=== PATIENT | female | born 1950 | race Caucasian/White ===

== ENCOUNTER 2016-03-11 13:40 | Emergency (ER) | payer MEDICARE, MEDICAID ==
[2016-03-11 14:43] LABS: #Basophils 0.1 thou/uL (0.0-0.2); #Eosinphils 0.1 thou/uL (0.0-0.7); #Lymphocytes 1.3 thou/uL (1.20-3.40); #Monocytes 0.9 thou/uL (0.11-0.59); #Neutrophils 7.2 thou/uL (1.40-6.50); %Basophils 1.3 % (0.0-1.0); %Eosinophils 0.8 % (0.0-10.0); %Neutrophils 75.8 % (42.0-75.0); Hemoglobin 14.6 g/dL (12.0-16.0); Mean Corpuscular Hemoglobin 33.6 pg (27.0-31.0); Mean Corpuscular Volume 101.7 fl (81.0-99.0); Mean Platelet Volume 7.5 fL (7.4-10.4); Platelet Count 321 thou/uL (130-400); RBC Distribution Width 13.5 % (11.5-14.5); Red Blood Cell (RBC) Count 4.33 mill/uL (4.20-5.40); White Blood Cell (WBC) Count 9.6 thou/uL (4.8-10.8)
[2016-03-11 14:50] LABS: PTT 26.7 SEC (22.9-36.1); Prothrombin Time 13.1 SEC (12.0-14.7)
--- NOTE | 2016-03-11 15:00 | RAD ---
ONE VIEW CHEST: Comparison: 03-03-16 History: Possible seizure. Evaluate for aspiration. FINDINGS: Upright chest. Normal cardiac silhouette. The pulmonary vessels and hilum are normal. Costophreni c angles are clear. No masses or consolidations. No pneumothorax or osseous abnormalities. IMPRESSION: No acute cardiopulmonary process. POS: [facility]
[2016-03-11 15:01] LABS: ALT (SGPT) 30 U/L (0-55); AST (SGOT) 21 U/L (5-34); Albumin 3.3 g/dL (3.4-4.8); Alkaline Phosphatase 82 U/L (40-150); Anion Gap 18 mmol/L (10-20); BUN (Urea Nitrogen) 11 mg/dL (9.8-20.1); Bilirubin, Total 0.3 mg/dL (0.2-1.2); CK (CPK) 22 U/L (29-168); Calc. Creatinine Clearance 0 mL/min (70-130); Calcium 9.2 mg/dL (7.8-10.44); Carbon Dioxide 27 mmol/L (23-31); Chloride 104 mmol/L (98-107); Estimated GFR-MDRD 73; Globulin 3.8 g/dL (2.4-3.5); Glucose 82 mg/dL (80-115); Magnesium 2.4 mg/dL (1.6-2.6); Potassium 4.3 mmol/L (3.5-5.1); Protein, Total 7.1 g/dL (5.8-8.1); Sodium 145 mmol/L (136-145)
[2016-03-11 15:03] LABS: CKMB 1.1 ng/mL (0-6.6); Troponin I Less than 0.010 ng/mL (< 0.028)
[2016-03-11] MEDS ORDERED: Lorazepam 2 MG/ML VIAL ONE (15:04)
--- NOTE | 2016-03-11 15:04 | CT ---
CT HEAD NONCONTRAST: History: Seizure. Comparison: 08-28-13 FINDINGS: There is no evidence of acute intracranial hemorrhage or infarct. Dilatation of the ventricular sys tem has progressed since the prior study. Diffuse cortical atrophy is again demonstrated. Physiolo gic calcifications associated with basal ganglia. Septum pellucidum remains midline. Chronic opaci fication of the left mastoid air cells is apparent. IMPRESSION: Significant progression of communicating hydrocephalus. Clinical correlation regarding other signs and symptoms of normal pressure hydrocephalus is required. POS: [facility]
--- NOTE | 2016-03-11 17:28 | ERRECORD ---
[facility] EMERGENCY RECORD HPI SEIZURE (17:05 LLDO) CHIEF COMPLAINT: Patient presents for evaluation of seizure, Patient presents for evaluation of see triage note. pt has downs syndrome and dementia but has not had seizures before. sent in from [place] by ems for what appeared to be a single tonic seizure followed by a post ictal period. no aspiration or any other s-sx. HISTORIAN: Additional history obtained from custodial, Additional history obtained from EMS, pt is mostly non-verbal normally now, even less than her usual state. deep pain only on arrival. LOCATION: Symptoms are generalized. QUALITY: Seizure quality described as tonic-clonic, single episode. SEVERITY: Maximum severity of symptoms moderate, Currently symptoms are moderate. TIME COURSE: Sudden onset of symptoms, just prior to arrival, Symptoms are worsening, are constant. ASSOCIATED WITH: No associated alcohol use, No associated drug use, No associated fever, No associated trauma. EXACERBATED BY: Patient's condition exacerbated by nothing. RELIEVED BY: Patient's condition relieved by nothing. ROS CONSTITUTIONAL: see hpi. pt not responding and no family here. ros not really possible. (17:10 LLDO) EYES: Negative eye review of systems, Historian denies eye pain, denies eye redness, denies eye discharge. (17:16 LLDO) ENT: Negative ears, nose, throat review of systems, Historian denies epistaxis, denies rhinorrhea, denies sinus pain, denies sore throat. (17:16 LLDO) CARDIOVASCULAR: Negative cardiovascular review of systems, Historian denies chest pain, no radiation, Historian denies diaphoresis, denies syncope. (17:16 LLDO) RESPIRATORY: Negative respiratory review of systems, Historian denies cough, denies shortness of breath, denies sputum. (17:16 LLDO) GI: Negative gastrointestinal review of systems, Historian denies abdominal pain, denies constipation, denies diarrhea, denies nausea, denies vomiting. (17:16 LLDO) GENITOURINARY FEMALE: Negative genitourinary review of systems, Historian denies dysuria, denies frequency, denies urgency. (17:16 LLDO) MUSCULOSKELETAL: Negative musculoskeletal review of systems, Historian denies arthralgias, denies back pain, denies injury, denies myalgias, denies neck pain. (17:16 LLDO) SKIN: Negative skin review of systems, Historian denies cellulitis, denies rash, denies skin changes, denies skin lesions. (17:16 LLDO) NEUROLOGIC: Historian reports seizures. (17:10 LLDO) HEMO/LYMPHATIC: Normal hematologic/lymphatic system review, Historian denies abnormal blood clotting, denies gum bleeding, denies &a-1R&a+25V*p+0X*m8744V*c202B*c15G*c2P*p-0X&a-25V&a+1R Name: Carline Huretas : 1950 F65 MedRec: [id number] AcctNum: [id number] Prepared: Yas Mar 11, 2016 17:23 by Interface Page 1 of 4 pMD [facility] EMERGENCY RECORD petechiae. (17:16 LLDO) ALLERGIC/IMMUNOLOGIC: Normal allergy/immunologic system review, Historian denies eczema, denies environmental allergies, denies food allergies. (17:16 LLDO) PSYCHIATRIC: Negative psychiatric review of systems, Historian denies alcohol abuse, denies anxiety, denies depression, denies drug abuse, denies hallucinations. (17:16 LLDO) NOTES: All systems reviewed, negative except as described above. (17:10 LLDO) PAST MEDICAL HISTORY MEDICAL HISTORY: Notes: VERIFIED 02-29-16, Past medical history includes history of hyperlipidemia, Notes: Dementia, Down's Syndrome, hypothyroidism, Asthma; Dysphagia; Failed swallow study. HYPOPOTASSEMIA, LEUKOCYTOSIS, CANDIDIASIS OF THE MOUTH, PSEUDOBULBAR AFFECT, GERD, OSTEOPOROSIS. VERIFIED 04/14/15. (13:47 CJEF) FEMALE SURGICAL HISTORY: VERIFIED 02-29-16, NOT AVAILABLE ON [place] [facility]. (13:47 CJEF) PSYCHIATRIC HISTORY: Notes: VERIFIED 02-28-, Notes: Dementia, BIPOLAR, ANXIETY, DEPRESSION. (13:47 CJEF) SOCIAL HISTORY: Patient denies alcohol use, Patient denies drug use, Patient has no smoking history, Patient denies alcohol use, Patient denies drug use, Patient has no smoking history, Lives in [facility], Name of institution [facility],. (13:47 CJEF) FAMILY HISTORY: No known family hisotry. (13:47 CJEF) NOTES: Nursing records reviewed, Agree with nursing records, Medication list reviewed. (17:16 LLDO) KNOWN ALLERGIES Sulfa (Sulfonamide Antibiotics) tomato (Unconfirmed) CURRENT MEDICATIONS (13:48 CJEF) levothyroxine: TABLET : Strength - 25 mcg : ORAL Patient Dose: 88 mcg Oral once a day (in the morning). Depakote: TABLET, DELAYED RELEASE (ENTERIC COATED) : Strength - 125 mg : ORAL Patient Dose: 1 tab(s) Oral 3 times a day. Aricept: TABLET : Strength - 10 mg : ORAL Patient Dose: 10 mg Oral once a day (at bedtime). aspirin: TABLET, CHEWABLE : Strength - 81 mg : ORAL Patient Dose: mg Oral once a day. Ativan: TABLET : Strength - 1 mg : ORAL Patient Dose: 0.5 mg Oral once a day (at bedtime). Claritin: &a-1R&a+25V*p+0X*a0429J*c202B*c15G*c2P*p-0X&a-25V&a+1R Name: HuertasCarline : 1950 F65 MedRec: [id number] AcctNum: [id number] Prepared: [facility] Mar 11, 2016 17:23 by Interface Page 2 of 4 pMD [facility] EMERGENCY RECORD TABLET : Strength - 10 mg : ORAL Patient Dose: once a day (in the morning). Namenda: TABLET : Strength - 10 mg : ORAL Patient Dose: 10 mg Oral 2 times a day (before meals). Zantac: TABLET : Strength - 150 mg : ORAL Patient Dose: 2 times a day (before meals). Zocor: TABLET : Strength - 20 mg : ORAL Patient Dose: 10 mg Oral once a day (at bedtime). VITAL SIGNS VITAL SIGNS: BP: 144/80, Pulse: 80, Resp: 18, Temp: 98.3 (Tympanic), Pain: 0, O2 sat: 94 on Room Air, Time: 03/11/2016 13:41. (13:41 CJEF) BP: 117/69, Pulse: 79, Resp: 18, Pain: 0, O2 sat: 95 on Room Air, Time: 03/11/2016 14:32. (14:32 CJEF) BP: 141/74, Pulse: 75, Resp: 16, O2 sat: 95 on Room Air, Time: 03/11/2016 15:03. (15:03 CJEF) BP: 93/61, Pulse: 83, Resp: 18, Pain: 0, O2 sat: 96 on Room Air, Time: 03/11/2016 15:37. (15:37 CJEF) BP: 84/59, Pulse: 80, Resp: 18, Temp: 98.6 (Tympanic), Pain: 0, O2 sat: 94 on Room Air, Time: 03/11/2016 16:05. (16:05 CJEF) BP: 102/59, Pulse: 76, Resp: 16, O2 sat: 95 on Room Air, Time: 03/11/2016 16:31. (16:31 CJEF) BP: 93/53, Pulse: 75, Resp: 14, Pain: 0, O2 sat: 95 on Room Air, Time: 03/11/2016 17:00. (17:00 CJEF) PHYSICAL EXAM CONSTITUTIONAL: Vital signs reviewed, Patient afebrile, Pulse normal, Blood pressure, BP SLIGHTLY LOW, Respiratory rate normal, Patient alert and oriented to person, place and time. (17:11 LLDO) HEAD: Head exam included findings of head atraumatic, normocephalic. (17:12 LLDO) EYES: Eye exam included findings of eyelids normal to inspection, Pupils equally round and reactive to light, Conjunctiva normal, Sclera normal, Eye exam included findings of anterior chamber clear, pt not able to cooperate for good fundi. (17:12 LLDO) ENT: ENT exam normal. (17:12 LLDO) NECK: Neck exam included findings of normal range of motion, Trachea midline, Thyroid normal. (17:12 LLDO) RESPIRATORY CHEST: Respiratory exam included findings of no respiratory distress, Breath sounds clear, Chest exam included findings of chest movement symmetrical, Chest expansion equal. (17:12 LLDO) CARDIOVASCULAR: Cardiovascular exam included findings of heart rate regular rate and rhythm, Heart sounds normal. (17:12 LLDO) ABDOMEN FEMALE: Abdominal exam included findings of abdomen &a-1R&a+25V*p+0X*w0393J*c202B*c15G*c2P*p-0X&a-25V&a+1R Name: HuertasCarline : 1950 F65 MedRec: [id number] AcctNum: [id number] Prepared: [facility] Mar 11, 2016 17:23 by Interface Page 3 of 4 pMD [facility] EMERGENCY RECORD nontender, Bowel sounds normal. (17:12 LLDO) BACK: Back exam normal, Back exam included findings of normal inspection, range of motion normal. (17:16 LLDO) UPPER EXTREMITY: left arm drawn up and not seen to move. (17:12 LLDO) LOWER EXTREMITY: Lower extremity exam normal, Lower extremity exam included findings of inspection normal, Range of motion normal. (17:16 LLDO) NEURO: Neuro exam normal, Neuro exam findings include patient oriented to person, place and time, Speech normal, Demetria coma scale 15. (17:16 LLDO) SKIN: Skin exam normal, Skin exam included findings of skin warm, dry, and normal in color, no rash. (17:16 LLDO) PSYCHIATRIC: Psychiatric exam normal, Psychiatric exam included findings of patient oriented to person place and time, Normal affect. (17:16 LLDO) MEDICATION ADMINISTRATION SUMMARY Drug Name: Ativan injection, Dose Ordered: 1 mg, Route: IV Push, Status: Given, Time: 15:07 03/11/2016, Detailed record available in Medication Service section. DOCTOR NOTES TEXT: pt appeared to have a witnessed very brief tonic-clonic seizure and is now very poorly responsive (possible [id number]). (15:01 LLDO) talked to sister who agreed to the transfer and neurosurgical evaluation. (17:02 LLDO) PROBLEM LIST No recorded problems DIAGNOSIS (17:04 LLDO) FINAL: PRIMARY: OBSTRUCTIVE HYDROCEPHALUS, ADDITIONAL: seizures, new onset, trisomy 21. PRESCRIPTION No recorded prescriptions DISPOSITION PATIENT: Disposition Type: Transfer, Disposition: Transfer to [facility]. (17:04 LLDO) Patient left the department. (17:18 [facility]) Ramos: NANCY=KASSI Adam, Linnette LLDO=MD Hayes, Jas &a-1R&a+25V*p+0X*[id number]*c202B*c15G*c2P*p-0X&a-25V&a+1R Name: Carline Huertas : 1950 F65 MedRec: [id number] AcctNum: [id number] Prepared: Yas Mar 11, 2016 17:23 by Interface Page 4 of 4 pMD MTDD
--- NOTE | 2016-03-11 17:31 | PICIS ---
[facility] EMERGENCY RECORD TRIAGE (TueMar 11, 2016 13:44 CJEF) TRIAGE NOTES: PT FROM [facility] AND SENT FOR A POSSIBLE SEIZURE AND AMS. SEIZURE WAS UNWITNESSED, THOUGH [place] STAFF ALSO STATED THAT PT DOES NOT HAVE A HX OF SEIZURES. PT ALERT, THOUGH NOT RESPONDING. (TueMar 11, 2016 13:44 CJEF) PATIENT: NAME: Carline Huertas, AGE: 65, GENDER: female, : Tue1950, TIME OF GREET: TueMar 11, 2016 13:41, PREFERRED LANGUAGE: [place] Islander, ETHNICITY: Not or , FALL RISK: YES, ADVANCED DIRECTIVE: Yes, ECODE BILLING MAP: [facility], SSN: [id number], Zip Code: [address], KG WEIGHT: 72.57, PHONE: , , , PERSON ID: [id number], PCP: MD JIMENEZ IMELDA. (TueMar 11, 2016 13:44 CJEF) COMPLAINT: AMS. (TueMar 11, 2016 13:44 CJEF) ADMISSION: URGENCY: 3 Urgent, ADMISSION SOURCE: Home, TRANSPORT: Walk-in, BED: TRIAGE. (TueMar 11, 2016 13:44 CJEF) ASSESSMENT: Assessment: AMS. (13:47 CJEF) PAIN: No complaint of pain. (13:47 CJEF) IMMUNIZATIONS: Flu vaccine up to date, Tetanus immunization up to date, Pneumococcal vaccine up to date. (13:47 CJEF) SIRS SCORING: Heart Rate 55-109 (0), Temp range 96.8-101.1 (0), respiratory rate 12-24 (0), Mental Status altered: no (0), Infection or Suspected Infection: No. (13:47 CJEF) TRIAGE SCREENING: Patient denies suicidal ideation, Patient denies presence of domestic violence. (13:47 CJEF) PROVIDERS: TRIAGE NURSE: Linnette Adam RN. (TueMar 11, 2016 13:44 CJEF) VITAL SIGNS: BP 144/80, Pulse 80, Resp 18, Temp 98.3, (Tympanic), Pain 0, O2 Sat 94, on Room Air, Time 03/11/2016 13:41. (13:41 CJEF) PREVIOUS VISIT ALLERGIES: Sulfa (Sulfonamide Antibiotics). (TueMar 11, 2016 13:44 CJEF) Sulfa (Sulfonamide Antibiotics). (13:47 CJEF) KNOWN ALLERGIES Sulfa (Sulfonamide Antibiotics) tomato (Unconfirmed) CURRENT MEDICATIONS (13:48 CJEF) levothyroxine: TABLET : Strength - 25 mcg : ORAL Patient Dose: 88 mcg Oral once a day (in the morning). Depakote: TABLET, DELAYED RELEASE (ENTERIC COATED) : Strength - 125 mg : ORAL Patient Dose: 1 tab(s) Oral 3 times a day. Aricept: TABLET : Strength - 10 mg : ORAL Patient Dose: 10 mg Oral once a day (at bedtime). aspirin: TABLET, CHEWABLE : Strength - 81 mg : ORAL Patient Dose: mg Oral once a day. &a-1R&a+25V*p+0X*l6650J*c202B*c15G*c2P*p-0X&a-25V&a+1R Name: Carline Huertas Hannah : 1950 F65 MedRec: [id number] AcctNum: [id number] Prepared: TueMar 11, 2016 17:29 by Interface Page 1 of 14 pMD [facility] EMERGENCY RECORD Ativan: TABLET : Strength - 1 mg : ORAL Patient Dose: 0.5 mg Oral once a day (at bedtime). Claritin: TABLET : Strength - 10 mg : ORAL Patient Dose: once a day (in the morning). Namenda: TABLET : Strength - 10 mg : ORAL Patient Dose: 10 mg Oral 2 times a day (before meals). Zantac: TABLET : Strength - 150 mg : ORAL Patient Dose: 2 times a day (before meals). Zocor: TABLET : Strength - 20 mg : ORAL Patient Dose: 10 mg Oral once a day (at bedtime). VITAL SIGNS VITAL SIGNS: BP: 144/80, Pulse: 80, Resp: 18, Temp: 98.3 (Tympanic), Pain: 0, O2 sat: 94 on Room Air, Time: 03/11/2016 13:41. (13:41 CJEF) BP: 117/69, Pulse: 79, Resp: 18, Pain: 0, O2 sat: 95 on Room Air, Time: 03/11/2016 14:32. (14:32 CJEF) BP: 141/74, Pulse: 75, Resp: 16, O2 sat: 95 on Room Air, Time: 03/11/2016 15:03. (15:03 CJEF) BP: 93/61, Pulse: 83, Resp: 18, Pain: 0, O2 sat: 96 on Room Air, Time: 03/11/2016 15:37. (15:37 CJEF) BP: 84/59, Pulse: 80, Resp: 18, Temp: 98.6 (Tympanic), Pain: 0, O2 sat: 94 on Room Air, Time: 03/11/2016 16:05. (16:05 CJEF) BP: 102/59, Pulse: 76, Resp: 16, O2 sat: 95 on Room Air, Time: 03/11/2016 16:31. (16:31 CJEF) BP: 93/53, Pulse: 75, Resp: 14, Pain: 0, O2 sat: 95 on Room Air, Time: 03/11/2016 17:00. (17:00 CJEF) NURSING ASSESSMENT: FALL RISK (14:36 CJ) FALL RISK: Fall risk assessment findings include: History of falls (5), Bed rest greater than 2 days (5), No use of level of consciousness altering agents with mentation or cognitive changes (0), No change in blood pressure (0), Sensory deficits (1), Impaired mobility (3), Neurologic diagnosis (3), Elimination problems (3), Confusion (3), Total score 23, Fall risk. HENDRICH II FALL RISK: Hendrich II Fall Risk assessment findings include patient confused, disoriented or impulsive(4), not symptomatic or depressed, altered elimination(1), no dizziness or vertigo, female, no antiepileptics (anticonvulsants) administered, no Benzodiazepines administered, Unable to rise without assistance during test(4), Total score 9, Score greater than 5. Patient is at high risk for fall. Fall risk precautions initiated. &a-1R&a+25V*p+0X*j9388Y*c202B*c15G*c2P*p-0X&a-25V&a+1R Name: Carline Huertas : 1950 F65 MedRec: [id number] AcctNum: [id number] Prepared: Yas Mar 11, 2016 17:29 by Interface Page 2 of 14 pMD [facility] EMERGENCY RECORD NURSING ASSESSMENT: FOCUSED (13:48 [facility]) CONSTITUTIONAL: Complex assessment performed, Patient arrives, via [facility], Unsteady gait, Lift to cart, History obtained from, [facility], shelter record, Patient appears, generally ill, Patient, confused, Patient alert, Patient is, disoriented, confused, Skin warm, Skin dry, Skin normal in color, Mucous membranes pink, Mucous membranes moist, Patient is well-groomed, PT FROM [facility] AND SENT FOR A POSSIBLE SEIZURE AND AMS. SEIZURE WAS UNWITNESSED, THOUGH [place] STAFF ALSO STATED THAT PT DOES NOT HAVE A HX OF SEIZURES. PT ALERT, THOUGH NOT RESPONDING. PAIN: Pain level 0 No Hurt, using faces pain scoring. EYES: Focused eye assessment finding include pupils equally round and reactive to light, no redness, no tearing. NEURO: Focused neuro assessment findings include patient alert, No facial droop noted, Silent, Loss of consciousness for unknown length of time. GCS: Eye opening: (4) - Spontaneous, Verbal: (1) - Absent, Motor: (5) - Localizes Pain, GCS Total: 10. RESPIRATORY: Focused respiratory assessment findings include breath sounds clear. ABDOMEN: Focused abdominal assessment findings include abdomen soft, non tender. GENITOURINARY FEMALE: Focused genitourinary assessment not applicable. LACERATION: Focused laceration assessment not applicable. NOTES: Patient tolerated procedure well. SAFETY: Side rails up, Cart/Stretcher in lowest position, Family at bedside, Call light within reach, Hospital ID band on. NURSING ASSESSMENT: SKIN (15:03 [facility]) SKIN: Skin assessment findings include skin warm, Skin dry, Skin normal in color, Notes: BLANCHABLE REDNESS TO SACRUM. NERISSA SCALE: (2) Sensory perception very limited, (3) Skin is occasionally moist, (1) Patient is bedfast, (2) Very limited mobility, (3) Adequate nutrition, (1) Patient has problem moving, Nerissa Risk Total: 12. NOTES: Patient tolerated procedure well. SAFETY: Side rails up, Cart/Stretcher in lowest position, Family at bedside, Call light within reach, Hospital ID band on. NURSING PROCEDURE: BEDSIDE SIRS TESTING SCORES: Heart Rate 55-109 (0), Temp range 96.8-101.1 (0), respiratory rate 12-24 (0), Latest WBC 3-14.9 (0), Mental Status altered: no (0), Infection or Suspected Infection: No. (15:09 CJEF) Heart Rate 55-109 (0), Temp range 96.8-101.1 (0), respiratory rate 12-24 (0), Latest WBC 3-14.9 (0), Mental Status altered: no (0), Infection &a-1R&a+25V*p+0X*w0425Q*c202B*c15G*c2P*p-0X&a-25V&a+1R Name: Carline Huertas : 1950 F65 MedRec: [id number] AcctNum: [id number] Prepared: [facility] Mar 11, 2016 17:29 by Interface Page 3 of 14 pMD [facility] EMERGENCY RECORD or Suspected Infection: No. (16:21 [facility]) NURSING PROCEDURE: WEIGH AND CHARGE WORKER (13:52 [facility]) PATIENT IDENTIFIER: Patient actively involved in identification process, Patient's identity verified by patient stating name, Patient's identity verified by patient stating date. WEIGH AND CHARGE WORKER: Cardiac monitoring indicated for mental status changes, Patient placed on log snaker, Heart rate: 79, showing normal sinus rhythm, Patient placed on non-invasive blood pressure monitor, with disposable blood pressure cuff applied, Patient placed on continuous pulse oximetry, Adult/pediatric oxisensor applied. FOLLOW-UP: After procedure, alarms set and on, After procedure, patient tolerating monitoring. NOTES: Patient tolerated procedure well. SAFETY: Side rails up, Cart/Stretcher in lowest position, Family at bedside, Call light within reach, Hospital ID band on. NURSING PROCEDURE: EKG CHART (14:25 CJEF) PATIENT IDENTIFIER: Patient actively involved in identification process, Patient's identity verified by patient stating name, Patient's identity verified by patient stating date. EK lead EKG performed on the left chest, first EKG. FOLLOW-UP: After procedure, EKG for interpretation given to Dr. KOO. NOTES: Patient tolerated procedure well. SAFETY: Side rails up, Cart/Stretcher in lowest position, Family at bedside, Call light within reach, Hospital ID band on. NURSING PROCEDURE: IV (14:31 CJEF) PATIENT IDENITIFIER: Patient actively involved in identification process, Patient's identity verified by patient stating name, Patient's identity verified by patient stating date. IV SITE 1: IV therapy indicated for hydration, IV therapy indicated for medication administration, IV established, to the left hand, using a 20 gauge catheter, in one attempt, IV site prepped with CHLORAPREP, Saline lock established, Flushed with normal saline (mls): 10, Labs drawn at time of placement, labeled in the presence of the patient and sent to lab. FOLLOW-UP SITE 1: After procedure, sterile transparent dressing applied. NOTES: Patient tolerated procedure well. SAFETY: Side rails up, Cart/Stretcher in lowest position, Family at bedside, Call light within reach, Hospital ID band on. NURSING PROCEDURE: NURSE NOTES NURSES NOTES: Patient in no apparent distress, Patient resting quietly, Notes: PT WAS FOUND TO BE HAVING A SEIZURE UPON ENTERING PT ROOM. SEIZURE LASTED APPROX 30 SECONDS AND WAS A TONIC CLONIC. PT NOW IN POSTICTAL STATE. SEIZURE PADS IN PLACE. (15:00 &a-1R&a+25V*p+0X*f8419N*c202B*c15G*c2P*p-0X&a-25V&a+1R Name: Carline Huertas : 1950 F65 MedRec: [id number] AcctNum: [id number] Prepared: [facility] Mar 11, 2016 17:29 by Interface Page 4 of 14 pMD [facility] EMERGENCY RECORD CJEF) Patient in no apparent distress, Patient resting quietly, Notes: PT RESTING IN BED WITH EYES SHUT. NO DISTRESS NOTED. (15:37 CJEF) Patient in no apparent distress, Patient resting quietly, Notes: PT RESTING IN BED WITH EYES SHUT. NO DISTRESS NOTED. (16:04 CJEF) Patient in no apparent distress, Patient resting quietly, Notes: PT RESTING IN BED WITH EYES SHUT. NO DISTRESS NOTED. (16:31 CJEF) Patient in no apparent distress, Notes: PT WITH INTERMITTENT AND INFREQUENT OPENING OF EYES, THOUGH PT IS NON VERBAL AND DOES RESPOND TO PAIN BY ATTEMPTING TO PULL AWAY. (16:40 CJEF) Patient in no apparent distress, Notes: PT WITH SMALL BOWL MOVEMENT. PT CLEANED AND NEW BRIEF PLACED. (17:09 CJEF) Patient in no apparent distress, Patient resting quietly, Notes: EMS AT BEDSIDE FOR REPORT. (17:18 CJEF) NURSING PROCEDURE: TRANSFER (16:52 CJEF) TRANSFER: Reason for transfer need for specialized care, Diagnosis: HYDROCEPHALUS, SEIZURES, Accepting institution: [facility] physician: JUAN MANUEL, Transported by urgent ambulance, accompanied by emergency medical services personnel, Report called to receiving facility, [facility], Provided opportunity to answer questions, Summary of Care printed, Copy of patient record prepared for receiving facility, Copy of diagnostic studies, Status of patient's valuables documented on chart, Medication reconciliation form prepared and sent to receiving facility, Patient consent for transfer signed, Patient given appropriate sedation for safe transport, Family member contacted, MARILYN RODRIGUEZ. BELONGINGS: Belongings remain with patient. NOTES: Patient tolerated procedure well. SAFETY: Side rails up, Cart/Stretcher in lowest position, Family at bedside, Call light within reach, Hospital ID band on. NURSING PROCEDURE: TRANSPORT TO TESTS PATIENT IDENTIFIER: Patient actively involved in identification process, Patient's identity verified by patient stating name, Patient's identity verified by patient stating date. (14:37 CJEF) TRANSPORT TO TESTS: Transport indicated to facilitate diagnosis, Patient transported to x-ray, via cart, Accompanied by x-ray hvac technician, Notes: PT TRANSPORTED TO X-RAY AND CT. (14:37 CJEF) FOLLOW-UP: After procedure, patient returned to emergency department. (14:58 CJEF) NOTES: Patient tolerated procedure well. (14:37 CJEF) SAFETY: Side rails up, Cart/Stretcher in lowest position, Family at bedside, Call light within reach, Hospital ID band on. (14:37 CJEF) ORDER DETAILS &a-1R&a+25V*p+0X*e5030R*c202B*c15G*c2P*p-0X&a-25V&a+1R Name: Carline Huertas : 1950 F65 MedRec: [id number] AcctNum: [id number] Prepared: [facility] Mar 11, 2016 17:29 by Interface Page 5 of 14 pMD [facility] EMERGENCY RECORD Order Name: B type Natriuretic Peptide, Status: Active, Time: 14:14 03/11/2016, User: LLDO, - Ordered for: MD Koo Lloyd, - Entered by: MD Koo Lloyd - Yas Mar 11, 2016 14:14, - Quantity: 1, Order Name: Cardiac Profile w/CKMB & Troponin - I, Status: Active, Time: 14:14 03/11/2016, User: LLDO, - Ordered for: MD Koo Lloyd, - Entered by: MD Koo Lloyd - Ysa Mar 11, 2016 14:14, - Quantity: 1, Order Name: CBC with Differential, Status: Active, Time: 14:13 03/11/2016, User: LLDO, - Ordered for: MD Koo Lloyd, - Entered by: MD Koo Lloyd - Yas Mar 11, 2016 14:13, - Quantity: 1, Order Name: CK (CPK), Status: Active, Time: 14:14 03/11/2016, User: LLDO, - Ordered for: MD Koo Lloyd, - Entered by: MD Koo Lloyd - Yas Mar 11, 2016 14:14, - Quantity: 1, Order Name: Comprehensive Metabolic Panel, Status: Active, Time: 14:13 03/11/2016, User: LLDO, - Ordered for: MD Koo Lloyd, - Entered by: MD Koo Lloyd - Yas Mar 11, 2016 14:13, - Quantity: 1, Order Name: CT Brain WO Con, Status: Active, Time: 14:13 03/11/2016, User: LLDO, - Ordered for: MD Koo Lloyd, - Entered by: MD Koo Lloyd - Yas Mar 11, 2016 14:13, - Quantity: 1, Order Name: EKG 12 Lead in Emergency Room, Status: Active, Time: 14:14 03/11/2016, User: LLDO, - Ordered for: MD Koo Lloyd, - Entered by: MD Koo Lloyd - Yas Mar 11, 2016 14:14, - Quantity: 1, Order Name: ERRT Oxygen Usage ER, Status: Active, Time: 14:14 03/11/2016, User: LLDO, - Ordered for: MD Koo Lloyd, - Entered by: MD Koo Lloyd - Yas Mar 11, 2016 14:14, - Quantity: 1, Order Name: ERRT Pulse Oximeter ER, Status: Active, Time: 14:14 03/11/2016, User: LLDO, - Ordered for: MD Koo Lloyd, - Entered by: MD Koo Lloyd - [facility] Mar 11, 2016 14:14, - Quantity: 1, Order Name: Magnesium, Status: Active, Time: 14:14 03/11/2016, User: LLDO, - Ordered for: MD Koo Lloyd, - Entered by: MD Koo Lloyd - [facility] Mar 11, 2016 14:14, - Quantity: 1, &a-1R&a+25V*p+0X*n4050J*c202B*c15G*c2P*p-0X&a-25V&a+1R Name: Carline Huertas : 1950 F65 MedRec: [id number] AcctNum: [id number] Prepared: TueMar 11, 2016 17:29 by Interface Page 6 of 14 D [facility] EMERGENCY RECORD Order Name: Protime with INR, Status: Active, Time: 14:14 03/11/2016, User: LLDO, - Ordered for: MD Koo Lloyd, - Entered by: MD Koo Lloyd - Yas Mar 11, 2016 14:14, - Quantity: 1, Order Name: PTT, Status: Active, Time: 14:14 03/11/2016, User: LLDO, - Ordered for: MD Koo Lloyd, - Entered by: MD Koo Lloyd - Yas Mar 11, 2016 14:14, - Quantity: 1, Order Name: SALINE LOCK, Status: Done, Time: 14:35 03/11/2016, User: CJEF, - Ordered for: MD Koo Lloyd, - Entered by: MD Koo Lloyd - Yas Mar 11, 2016 14:14, - Quantity: 1, Order Name: Thyroid Stimulating Hormone, Status: Active, Time: 14:13 03/11/2016, User: KATLYN, - Ordered for: MD Koo Lloyd, - Entered by: MD Koo Lloyd - [facility] Mar 11, 2016 14:13, - Quantity: 1, Order Name: XR Chest 1 View Portable, Status: Active, Time: 14:14 03/11/2016, User: KATLYN, - Ordered for: MD Koo Lloyd, - Entered by: MD Koo Lloyd - [facility] Mar 11, 2016 14:14, - Quantity: 1. MEDICATION ADMINISTRATION SUMMARY Drug Name: Ativan injection, Dose Ordered: 1 mg, Route: IV Push, Status: Given, Time: 15:07 03/11/2016, Detailed record available in Medication Service section. MEDICATION SERVICE (15:07 [facility]) Ativan injection: Order: Ativan injection (lorazepam) - Dose: 1 mg : IV Push Schedule: Now Ordered by: Jas Koo MD Entered by: Jas Koo MD [facility] Mar 11, 2016 14:59 Documented as given by: Linnette Adam RN [facility] Mar 11, 2016 15:07 Patient, Medication, Dose, Route and Time verified prior to administration. Amount given: 1 MG, IV SITE #1 IVP, initial medication, Slowly, Awake and alert- acceptable, Connections checked prior to administration, Line traced prior to administration, Catheter placement confirmed via flush prior to administration, IV site without signs or symptoms of infiltration during medication administration, No swelling during administration, No drainage during administration, IV flushed after administration, Correct patient, time, route, dose and medication confirmed prior to administration, Patient advised of actions and side-effects prior to administration, Allergies confirmed and medications reviewed prior to administration, &a-1R&a+25V*p+0X*j4166I*c202B*c15G*c2P*p-0X&a-25V&a+1R Name: Carline Huertas : 1950 F65 MedRec: [id number] AcctNum: [id number] Prepared: TueMar 11, 2016 17:29 by Interface Page 7 of 14 pMD [facility] EMERGENCY RECORD Patient tolerated procedure well, Patient in position of comfort, Side rails up, Cart in lowest position, Family at bedside. HPI SEIZURE (17:05 LLDO) CHIEF COMPLAINT: Patient presents for evaluation of seizure, Patient presents for evaluation of see triage note. pt has downs syndrome and dementia but has not had seizures before. sent in from [place] by ems for what appeared to be a single tonic seizure followed by a post ictal period. no aspiration or any other s-sx. HISTORIAN: Additional history obtained from shelter, Additional history obtained from EMS, pt is mostly non-verbal normally now, even less than her usual state. deep pain only on arrival. LOCATION: Symptoms are generalized. QUALITY: Seizure quality described as tonic-clonic, single episode. SEVERITY: Maximum severity of symptoms moderate, Currently symptoms are moderate. TIME COURSE: Sudden onset of symptoms, just prior to arrival, Symptoms are worsening, are constant. ASSOCIATED WITH: No associated alcohol use, No associated drug use, No associated fever, No associated trauma. EXACERBATED BY: Patient's condition exacerbated by nothing. RELIEVED BY: Patient's condition relieved by nothing. ROS CONSTITUTIONAL: see hpi. pt not responding and no family here. ros not really possible. (17:10 LLDO) EYES: Negative eye review of systems, Historian denies eye pain, denies eye redness, denies eye discharge. (17:16 LLDO) ENT: Negative ears, nose, throat review of systems, Historian denies epistaxis, denies rhinorrhea, denies sinus pain, denies sore throat. (17:16 LLDO) CARDIOVASCULAR: Negative cardiovascular review of systems, Historian denies chest pain, no radiation, Historian denies diaphoresis, denies syncope. (17:16 LLDO) RESPIRATORY: Negative respiratory review of systems, Historian denies cough, denies shortness of breath, denies sputum. (17:16 LLDO) GI: Negative gastrointestinal review of systems, Historian denies abdominal pain, denies constipation, denies diarrhea, denies nausea, denies vomiting. (17:16 LLDO) GENITOURINARY FEMALE: Negative genitourinary review of systems, Historian denies dysuria, denies frequency, denies urgency. (17:16 LLDO) MUSCULOSKELETAL: Negative musculoskeletal review of systems, Historian denies arthralgias, denies back pain, denies injury, denies myalgias, denies neck pain. (17:16 LLDO) SKIN: Negative skin review of systems, Historian denies cellulitis, denies rash, denies skin changes, denies skin lesions. (17:16 LLDO) &a-1R&a+25V*p+0X*p8448Q*c202B*c15G*c2P*p-0X&a-25V&a+1R Name: Carline Huertas : 1950 F65 MedRec: [id number] AcctNum: [id number] Prepared: Yas Mar 11, 2016 17:29 by Interface Page 8 of 14 pMD [facility] EMERGENCY RECORD NEUROLOGIC: Historian reports seizures. (17:10 LLDO) HEMO/LYMPHATIC: Normal hematologic/lymphatic system review, Historian denies abnormal blood clotting, denies gum bleeding, denies petechiae. (17:16 LLDO) ALLERGIC/IMMUNOLOGIC: Normal allergy/immunologic system review, Historian denies eczema, denies environmental allergies, denies food allergies. (17:16 LLDO) PSYCHIATRIC: Negative psychiatric review of systems, Historian denies alcohol abuse, denies anxiety, denies depression, denies drug abuse, denies hallucinations. (17:16 LLDO) NOTES: All systems reviewed, negative except as described above. (17:10 LLDO) PAST MEDICAL HISTORY MEDICAL HISTORY: Notes: VERIFIED 02-29-16, Past medical history includes history of hyperlipidemia, Notes: Dementia, Down's Syndrome, hypothyroidism, Asthma; Dysphagia; Failed swallow study. HYPOPOTASSEMIA, LEUKOCYTOSIS, CANDIDIASIS OF THE MOUTH, PSEUDOBULBAR AFFECT, GERD, OSTEOPOROSIS. VERIFIED 04/14/15. (13:47 CJEF) FEMALE SURGICAL HISTORY: VERIFIED 02-29-16, NOT AVAILABLE ON [place] [facility]. (13:47 CJEF) PSYCHIATRIC HISTORY: Notes: VERIFIED 02-29-16, Notes: Dementia, BIPOLAR, ANXIETY, DEPRESSION. (13:47 CJEF) SOCIAL HISTORY: Patient denies alcohol use, Patient denies drug use, Patient has no smoking history, Patient denies alcohol use, Patient denies drug use, Patient has no smoking history, Lives in half-way care facility, Name of institution [facility],. (13:47 CJEF) FAMILY HISTORY: No known family hisotry. (13:47 CJEF) NOTES: Nursing records reviewed, Agree with nursing records, Medication list reviewed. (17:16 LLDO) PHYSICAL EXAM CONSTITUTIONAL: Vital signs reviewed, Patient afebrile, Pulse normal, Blood pressure, BP SLIGHTLY LOW, Respiratory rate normal, Patient alert and oriented to person, place and time. (17:11 LLDO) HEAD: Head exam included findings of head atraumatic, normocephalic. (17:12 LLDO) EYES: Eye exam included findings of eyelids normal to inspection, Pupils equally round and reactive to light, Conjunctiva normal, Sclera normal, Eye exam included findings of anterior chamber clear, pt not able to cooperate for good fundi. (17:12 LLDO) ENT: ENT exam normal. (17:12 LLDO) NECK: Neck exam included findings of normal range of motion, Trachea midline, Thyroid normal. (17:12 LLDO) RESPIRATORY CHEST: Respiratory exam included findings of no respiratory distress, Breath sounds clear, Chest exam included findings of chest movement symmetrical, Chest expansion equal. (17:12 LLDO) &a-1R&a+25V*p+0X*n0132E*c202B*c15G*c2P*p-0X&a-25V&a+1R Name: Carline Huertas : 1950 F65 MedRec: [id number] AcctNum: [id number] Prepared: Yas Mar 11, 2016 17:29 by Interface Page 9 of 14 D [facility] EMERGENCY RECORD CARDIOVASCULAR: Cardiovascular exam included findings of heart rate regular rate and rhythm, Heart sounds normal. (17:12 LLDO) ABDOMEN FEMALE: Abdominal exam included findings of abdomen nontender, Bowel sounds normal. (17:12 LLDO) BACK: Back exam normal, Back exam included findings of normal inspection, range of motion normal. (17:16 LLDO) UPPER EXTREMITY: left arm drawn up and not seen to move. (17:12 LLDO) LOWER EXTREMITY: Lower extremity exam normal, Lower extremity exam included findings of inspection normal, Range of motion normal. (17:16 LLDO) NEURO: Neuro exam normal, Neuro exam findings include patient oriented to person, place and time, Speech normal, Demetria coma scale 15. (17:16 LLDO) SKIN: Skin exam normal, Skin exam included findings of skin warm, dry, and normal in color, no rash. (17:16 LLDO) PSYCHIATRIC: Psychiatric exam normal, Psychiatric exam included findings of patient oriented to person place and time, Normal affect. (17:16 LLDO) EVENTS TRANSFER: Triage to Emergency Triage. (13:44 CJEF) Emergency Triage to Main ED -04. (13:46 CJEF) Removed from Emergency Main ED -04. (17:18 CJEF) DOCTOR NOTES TEXT: pt appeared to have a witnessed very brief tonic-clonic seizure and is now very poorly responsive (possible [id number]). (15:01 LLDO) talked to sister who agreed to the transfer and neurosurgical evaluation. (17:02 LLDO) PROBLEM LIST No recorded problems DIAGNOSIS (17:04 LLDO) FINAL: PRIMARY: OBSTRUCTIVE HYDROCEPHALUS, ADDITIONAL: seizures, new onset, trisomy 21. DISPOSITION PATIENT: Disposition Type: Transfer, Disposition: Transfer to [facility]. (17:04 LLDO) Patient left the department. (17:18 CJEF) PRESCRIPTION No recorded prescriptions IMAGING OOH DNR: Image captured from scanner. (14:47 JPAR) [place] ADMISSION RECORD: Image captured from scanner. (14:48 JPAR) &a-1R&a+25V*p+0X*x3733D*c202B*c15G*c2P*p-0X&a-25V&a+1R Name: Carline Huertas : 1950 F65 MedRec: [id number] AcctNum: [id number] Prepared: [facility] Mar 11, 2016 17:29 by Interface Page 10 of 14 pMD [facility] EMERGENCY RECORD [place] TO HOSP TSFR FORM & S BAR: Image captured from scanner. (14:49 JPAR) Page 2 added. Image captured from scanner. (14:49 JPAR) Page 3 added. Image captured from scanner. (14:49 JPAR) Page 4 added. Image captured from scanner. (14:49 JPAR) Page 5 added. Image captured from scanner. (14:49 JPAR) Page 6 added. Image captured from scanner. (14:49 JPAR) [facility] ORDER SUMMARY: Image captured from scanner. (14:50 JPAR) Page 2 added. Image captured from scanner. (14:50 JPAR) Page 3 added. Image captured from scanner. (14:50 JPAR) [facility] LAB TEST RESULTS: Image captured from scanner. (14:51 JPAR) Page 2 added. Image captured from scanner. (14:51 JPAR) Page 3 added. Image captured from scanner. (14:51 JPAR) *EKG: Image captured from scanner. (15:28 JPAR) EMS CALL-IN REPORT: Image captured from scanner. (15:30 JPAR) *MEMORANDUM OF TRANSFER: Image captured from scanner. (17:10 LWAL) EMS TRANSPORT ORDERS: Image captured from scanner. (17:10 LWAL) CONSENTS: Image captured from scanner. (17:10 LWAL) *SUPPLY CHARGE SHEET: Image captured from scanner. (17:20 CJEF) ADMIN DIGITAL SIGNATURE: MD Koo Lloyd. (17:05 LLDO) MD Koo Lloyd. (17:17 LLDO) RESULTS RADIOLOGY: CT Brain WO Con Observe DT: TueMar 11, 2016 14:14, BR CT HEAD NONCONTRAST: History: Seizure. Comparison: 08-28-13 FINDINGS: There is no evidence of acute intracranial hemorrhage or infarct. Dilatation of the ventricular sys tem has progressed since the prior study. Diffuse cortical atrophy is again demonstrated. Physiolo gic calcifications associated with basal ganglia. Septum pellucidum remains midline. Chronic opaci fication of the left mastoid air cells is apparent. IMPRESSION: Significant progression of communicating hydrocephalus. Clinical correlation regarding other signs and symptoms of normal pressure hydrocephalus is required. POS: [facility] . (15:08 [facility]) &a-1R&a+25V*p+0X*h1065M*c202B*c15G*c2P*p-0X&a-25V&a+1R Name: Carline Huertas : 1950 F65 MedRec: [id number] AcctNum: [id number] Prepared: TueMar 11, 2016 17:29 by Interface Page 11 of 14 pMD [facility] EMERGENCY RECORD XR Chest 1 View Portable Observe DT: TueMar 11, 2016 14:17, CXRP ONE VIEW CHEST: Comparison: 03-03-16 History: Possible seizure. Evaluate for aspiration. FINDINGS: Upright chest. Normal cardiac silhouette. The pulmonary vessels and hilum are normal. Costophreni c angles are clear. No masses or consolidations. No pneumothorax or osseous abnormalities. IMPRESSION: No acute cardiopulmonary process. POS: [facility] . (16:12 LWAL) LABORATORY: B type Natriuretic Peptide Collection DT: TueMar 11, 2016 14:39, B type Natriuretic Peptide 15.6 pg/mL, Range (0-100). (15:08 CJ) Cardiac Profile w/CKMB & TropI Collection DT: TueMar 11, 2016 14:39, CKMB 1.1 ng/mL, Range (0-6.6), Troponin I Less than 0.010 ng/mL, Range (< 0.028), Reference Range , 0.00 - 0.028 ng/mL Negative 0.029 - 0.29 ng/mL , Indeterminate Greater or Equal to 0.3 ng/mL Strongly suggests DE , . (15:08 CJ) Magnesium Collection DT: TueMar 11, 2016 14:39, Magnesium 2.4 mg/dL, Range (1.6-2.6), NOTE: Higher values can be expected in females during menses . (15:08 CJEF) CK (CPK) Collection DT: TueMar 11, 2016 14:39, *CK (CPK) 22 - L U/L, Range (29-168). (15:08 CJ) Comprehensive Metabolic Panel Collection DT: TueMar 11, 2016 14:39, Sodium 145 mmol/L, Range (136-145), Potassium 4.3 mmol/L, Range (3.5-5.1), Chloride 104 mmol/L, Range (98-107), Carbon Dioxide 27 mmol/L, Range (23-31), Anion Gap 18 mmol/L, Range (10-20), BUN (Urea Nitrogen) 11 mg/dL, Range (9.8-20.1), Creatinine 0.79 mg/dL, Range (0.6-1.1), Estimated GFR-MDRD 73 , Reference Range for Estimated GFR: Greater than 90, mL/min/1.73 m2 NOTE: The MDRD equation has not been validated for use, with the elderly (over 70 years of age), women, patients &a-1R&a+25V*p+0X*h0306V*c202B*c15G*c2P*p-0X&a-25V&a+1R Name: Carline Huertas : 1950 F65 MedRec: [id number] AcctNum: [id number] Prepared: TueMar 11, 2016 17:29 by Interface Page 12 of 14 pMD [facility] EMERGENCY RECORD with, serious comorbid condition or persons with extremes of body size, muscle, mass, or nutritional status. , Glucose 82 mg/dL, Range (80-115), Calcium 9.2 mg/dL, Range (7.8-10.44), Bilirubin, Total 0.3 mg/dL, Range (0.2-1.2), Protein, Total 7.1 g/dL, Range (5.8-8.1), NOTE: Plasma values are generally 0.3 to 0.5 g/dL higher than serum values, due to the presence of fibrinogen. , *Albumin 3.3 - L g/dL, Range (3.4-4.8), *Globulin 3.8 - H g/dL, Range (2.4-3.5), *Alb/Glob Ratio 0.9 - L g/dL, Range (1.2-2.2), Alkaline Phosphatase 82 U/L, Range (40-150), AST (SGOT) 21 U/L, Range (5-34), ALT (SGPT) 30 U/L, Range (0-55). (15:08 [facility]) PTT Collection DT: TueMar 11, 2016 14:39, See comment below , Anticoagulant? NONE Medical Necessity SUSPECT COAGULOPATHY , PTT 26.7 SEC, Range (22.9-36.1). (15:08 [facility]) Protime with INR Collection DT: TueMar 11, 2016 14:39, See comment below , Anticoagulant? NONE Medical Necessity SUSPECT COAGULOPATHY , Prothrombin Time 13.1 SEC, Range (12.0-14.7), INR-International Normal Ratio 1.0 , ATTENTION: READ CAREFULLY , The, recommended therapeutic ranges for oral anticoagulant treatments are: , , Low Intensity: 1.5 - 2.0 Moderate Intensity: 2.0, - 3.0 High Intensity (1): 2.5 - 3.5 High, Intensity (2): 3.0 - 4.0 CRITICAL: >, 4.0 . (15:08 [facility]) CBC with Differential Collection DT: TueMar 11, 2016 14:50, White Blood Cell (WBC) Count 9.6 thou/uL, Range (4.8-10.8), Red Blood Cell (RBC) Count 4.33 mill/uL, Range (4.20-5.40), Hemoglobin 14.6 g/dL, Range (12.0-16.0), Hematocrit 44.1 %, Range (36.0-47.0), *Mean Corpuscular Volume 101.7 - H fl, Range (81.0-99.0), *Mean Corpuscular Hemoglobin 33.6 - H pg, Range (27.0-31.0), Mean Corpuscular HGB CONC 33.0 g/dL, Range (32.0-36.0), RBC Distribution Width 13.5 %, Range (11.5-14.5), Platelet Count 321 thou/uL, Range (130-400), Mean Platelet Volume 7.5 fL, Range (7.4-10.4), *%Neutrophils 75.8 - H %, Range (42.0-75.0), &a-1R&a+25V*p+0X*u2861H*c202B*c15G*c2P*p-0X&a-25V&a+1R Name: Carline Huertas : 1950 F65 MedRec: [id number] AcctNum: [id number] Prepared: TueMar 11, 2016 17:29 by Interface Page 13 of 14 pMD [facility] EMERGENCY RECORD *%Lymphocytes 13.0 - L %, Range (21.0-51.0), %Monocytes 9.0 %, Range (0.0-10.0), %Eosinophils 0.8 %, Range (0.0-10.0), *%Basophils 1.3 - H %, Range (0.0-1.0), *#Neutrophils 7.2 - H thou/uL, Range (1.40-6.50), #Lymphocytes 1.3 thou/uL, Range (1.20-3.40), *#Monocytes 0.9 - H thou/uL, Range (0.11-0.59), #Eosinphils 0.1 thou/uL, Range (0.0-0.7), #Basophils 0.1 thou/uL, Range (0.0-0.2). (15:08 CJ) Thyroid Stimulating Hormone Collection DT: TueMar 11, 2016 14:39, *Thyroid Stimulating Hormone 5.5706 - H uIU/mL, Range (0.35-4.94). (16:12 LWAL) Ramos: NANCY=KASSI Adam, Linnette MAYES=JAIDEN Armstrong Julia LLDO=MD Hayes, Jas LWAL=KASSI Crockett, Yesica &a-1R&a+25V*p+0X*i6875B*c202B*c15G*c2P*p-0X&a-25V&a+1R Name: Carline Huertas : 1950 F65 MedRec: [id number] AcctNum: [id number] Prepared: TueMar 11, 2016 17:29 by Interface Page 14 of 14 pMD MTDD
== END 2016-03-11 17:18 | disposition short-term general hospital (02) ==
LOC: MADERS 13:40
DX: G91.1 Obstructive hydrocephalus (principal); Q90.9 Down syndrome, unspecified; E78.5 Hyperlipidemia, unspecified; F03.90 Unspecified dementia, unspecified severity, without behavioral disturbance, psychotic disturbance, mood disturbance, and anxiety; E03.9 Hypothyroidism, unspecified; J45.909 Unspecified asthma, uncomplicated; K21.9 Gastro-esophageal reflux disease without esophagitis; M81.0 Age-related osteoporosis without current pathological fracture; F41.9 Anxiety disorder, unspecified; F32.9 Major depressive disorder, single episode, unspecified; Z79.82 Long term (current) use of aspirin; Z79.899 Other long term (current) drug therapy
CPT/HCPCS: 70450; 71010; 80053; 82553; 83735; 83880; 84443; 84484; 85025; 85610; 85730; 93005; 94760; 96374; J2060

== ENCOUNTER 2016-03-14 14:43 | Inpatient (IN) | payer MEDICARE, MEDICAID ==
[~2016-03-14 14:43] MED LIST: Sodium Chloride 0.9% 1,000 ML BAG ONE
--- NOTE | 2016-03-14 16:17 | RAD ---
ONE VIEW CHEST: Comparison: 03-11-16 History: Altered mental status. FINDINGS: Portable upright chest: Normal cardiac silhouette. The pulmonary vessels and hilum are normal. Lungs are hyperinflated wit h chronic changes. No masses or consolidation. No pneumothorax or osseous abnormalities. IMPRESSION: Hyperinflation, chronic changes. POS: [facility]
[2016-03-14 16:33] LABS: Blood, Urine Large (Negative); Clarity Slightly Cloudy (Clear); Glucose, Urine (Dipstick) Negative (Negative); Leukocyte Negative (Negative); Nitrite Negative (Negative); Protein, Urine (Dipstick) 100 mg/dL (Neg-Trace); Urobilinogen 0.2 mg/dL (0.2-1.0)
[2016-03-14 16:38] LABS: ALT (SGPT) 16 U/L (0-55); AST (SGOT) 26 U/L (5-34); Alkaline Phosphatase 67 U/L (40-150); Anion Gap 20 mmol/L (10-20); BUN (Urea Nitrogen) 19 mg/dL (9.8-20.1); Bilirubin, Total 0.3 mg/dL (0.2-1.2); Calc. Creatinine Clearance 0 mL/min (70-130); Calcium 8.4 mg/dL (7.8-10.44); Carbon Dioxide 26 mmol/L (23-31); Chloride 106 mmol/L (98-107); Estimated GFR-MDRD 72; Globulin 3.3 g/dL (2.4-3.5); Glucose 95 mg/dL (80-115); Potassium 4.5 mmol/L (3.5-5.1); Protein, Total 6.3 g/dL (5.8-8.1); Sodium 147 mmol/L (136-145)
[2016-03-14 16:44] LABS: Hemoglobin 13.8 g/dL (12.0-16.0); Mean Corpuscular HGB CONC 31.8 g/dL (32.0-36.0); Mean Corpuscular Hemoglobin 33.4 pg (27.0-31.0); Mean Corpuscular Volume 104.9 fl (81.0-99.0); Platelet Count 203 thou/uL (130-400); RBC Distribution Width 13.8 % (11.5-14.5); Red Blood Cell (RBC) Count 4.13 mill/uL (4.20-5.40); White Blood Cell (WBC) Count 9.8 thou/uL (4.8-10.8)
[2016-03-14 16:45] LABS: Bilirubin Small (Negative)
[2016-03-14 16:46] LABS: Bacteria/HPF 3+ HPF (None Seen); Icto Negative (Negative); RBC/HPF 21-50 HPF (0-3); Renal Epithelial 0-3 HPF (0-3); Specific Gravity, Urine 1.032 (1.002-1.036); Squamous Epithelial 0-3 HPF (0-3); Transitional Epithelial 0-3 HPF (0-3)
[2016-03-14 16:47] LABS: Hyaline Casts/LPF 7-10 HYALINE CAST LPF (0-3 Hyaline)
[2016-03-14 16:48] LABS: Anisocytosis SLIGHT = 6-15 cells (100X) (0-5/hpf); Band 8 % (5-11); Delete Auto Diff?? YES; Lymphocytes 11 % (21-51); Macrocytosis SLIGHT = 6-15 cells (100X) (0-5/hpf); Monocytes 5 % (0-10); Neutrophil 76 % (42-75)
[2016-03-14] MEDS ORDERED: Ciprofloxacin 500 MG TAB ONE (17:09)
--- NOTE | 2016-03-14 20:31 | PICIS ---
[facility] EMERGENCY RECORD TRIAGE (TueMar 14, 2016 14:48 CJEF) TRIAGE NOTES: PT TO ED BY EMS FOR AMS. [facility] REPORTS THAT PT IS MORE ALTERED THAN NORMAL. PT WAS HERE RECENTLY AND DX WITH HYDROCEPHALUS AND SEIZURES. PT TRANSFERRED TO [facility] FOR A POSSIBLE SHUNT, THOUGH NO SHUNT WAS PLACED. PT TODAY IS LESS RESPONSIVE THAN NORMAL PER [place] STAFF. PT ARRIVES ALERT, THOUGH NON-VERBAL PER HER NORMAL. EMS STATES THAT PT HAD WHEEZING ON ARRIVAL AND BRONCHOSPASMS, PER CAPNOMETRY. PT WAS ADMINISTERED A DUONEB WITH INCREASE IN OXYGEN SAT FROM 88% TO 100%. ([place] Mar 14, 2016 14:48 CJEF) PATIENT: NAME: Carline Huertas, AGE: 65, GENDER: female, : Tue1950, TIME OF GREET: TueMar 14, 2016 14:43, PREFERRED LANGUAGE: Nepalese, ETHNICITY: Not or , FALL RISK: YES, ADVANCED DIRECTIVE: Yes, ECODE BILLING MAP: [facility], SSN: [id number], Zip Code: [address], KG WEIGHT: 68.04, PHONE: , , , PERSON ID: [id number], PCP: MD JIMENEZ IMELDA. ([place] Mar 14, 2016 14:48 CJEF) COMPLAINT: AMS. ([place] Mar 14, 2016 14:48 CJEF) ADMISSION: URGENCY: 3 Urgent, ADMISSION SOURCE: Home, TRANSPORT: Walk-in, BED: TRIAGE. ([place] Mar 14, 2016 14:48 CJEF) ASSESSMENT: Assessment: AMS. (14:50 CJEF) PAIN: No complaint of pain. (14:50 CJEF) IMMUNIZATIONS: Flu vaccine up to date, Tetanus immunization up to date, Pneumococcal vaccine up to date. (14:50 CJEF) SIRS SCORING: Heart Rate 55-109 (0), Temp range 96.8-101.1 (0), respiratory rate 12-24 (0), Mental Status altered: no (0), Infection or Suspected Infection: No. (14:50 CJEF) TRIAGE SCREENING: Patient denies suicidal ideation, Patient denies presence of domestic violence. (14:50 CJEF) PROVIDERS: TRIAGE NURSE: Linnette Adam RN. ([place] Mar 14, 2016 14:48 CJEF) VITAL SIGNS: BP 88/53, Pulse 85, Resp 16, Temp 98.3, (Tympanic), Pain 0, O2 Sat 100, on Face mask, Time 03/14/2016 14:44. (14:44 CJEF) PREVIOUS VISIT ALLERGIES: Sulfa (Sulfonamide Antibiotics). ([place] Mar 14, 2016 14:48 CJEF) Sulfa (Sulfonamide Antibiotics). (14:50 CJEF) KNOWN ALLERGIES Sulfa (Sulfonamide Antibiotics) tomato CURRENT MEDICATIONS levothyroxine: TABLET : Strength - 25 mcg : ORAL Patient Dose: 88 mcg Oral once a day (in the morning). (14:49 CJEF) Depakote: TABLET, DELAYED RELEASE (ENTERIC COATED) : Strength - 125 mg : ORAL Patient Dose: 1 tab(s) Oral 3 times a day. (14:49 CJEF) &a-1R&a+25V*p+0X*o2245S*c202B*c15G*c2P*p-0X&a-25V&a+1R Name: Carline Huertas : 1950 F65 MedRec: [id number] AcctNum: [id number] Prepared: Jenn Mar 14, 2016 21:35 by Interface Page [address] [facility] EMERGENCY RECORD Aricept: TABLET : Strength - 10 mg : ORAL Patient Dose: 10 mg Oral once a day (at bedtime). (14:49 CJEF) aspirin: TABLET, CHEWABLE : Strength - 81 mg : ORAL Patient Dose: mg Oral once a day. (14:49 CJEF) Ativan: TABLET : Strength - 1 mg : ORAL Patient Dose: 0.5 mg Oral once a day (at bedtime). (14:49 CJEF) Claritin: TABLET : Strength - 10 mg : ORAL Patient Dose: once a day (in the morning). (14:49 CJEF) Namenda: TABLET : Strength - 10 mg : ORAL Patient Dose: 10 mg Oral 2 times a day (before meals). (14:49 CJEF) Zantac: TABLET : Strength - 150 mg : ORAL Patient Dose: 2 times a day (before meals). (14:49 CJEF) Zocor: TABLET : Strength - 20 mg : ORAL Patient Dose: 10 mg Oral once a day (at bedtime). (14:49 CJEF) Keppra: TABLET : Strength - 500 mg : ORAL Patient Dose: 500 mg Oral 2 times a day. (14:58 CJEF) predniSONE: TABLET : Strength - 20 mg : ORAL Patient Dose: 40 mg Oral once a day. (14:58 CJEF) moxifloxacin: TABLET : Strength - 400 mg : ORAL Patient Dose: 400 mg Oral once a day. (14:59 CJEF) Centrum: TABLET, CHEWABLE : Strength - 0.4 mg-18 mg-3,500 unit : ORAL Patient Dose: 1 tab(s) Oral once a day. (14:59 CJEF) VITAL SIGNS VITAL SIGNS: BP: 88/53, Pulse: 85, Resp: 16, Temp: 98.3 (Tympanic), Pain: 0, O2 sat: 100 on Face mask, Time: 03/14/2016 14:44. (14:44 CJEF) BP: 96/56, Pulse: 86, Resp: 16, Pain: 0, O2 sat: 100 on Room Air, Time: 03/14/2016 15:12. (15:12 CJEF) BP: 88/58, Pulse: 85, Resp: 19, Pain: 0, O2 sat: 98 on 2L Oxygen, Time: 03/14/2016 15:37. (15:37 CJEF) BP: 92/51, Pulse: 83, Resp: 17, Pain: 0, O2 sat: 96 on 2L Oxygen, Time: 03/14/2016 16:04. (16:04 CJEF) BP: 104/60, Pulse: 89, Resp: 15, Temp: 99.2 (Rectal), Pain: 0, O2 sat: 97 on 2L Oxygen, Time: 03/14/2016 16:20. (16:20 CJEF) &a-1R&a+25V*p+0X*f8142F*c202B*c15G*c2P*p-0X&a-25V&a+1R Name: Carline Huertas : 1950 F65 MedRec: [id number] AcctNum: [id number] Prepared: Jenn Mar 14, 2016 21:35 by Interface Page [address] [facility] EMERGENCY RECORD BP: 96/49, Pulse: 83, Resp: 17, O2 sat: 96 on 2L Oxygen, Time: 03/14/2016 16:56. (16:56 CJEF) BP: 105/57, Pulse: 75, Resp: 17, Pain: 0, O2 sat: 97 on 2L Oxygen, Time: 03/14/2016 17:28. (17:28 CJEF) BP: 104/55, Pulse: 81, Resp: 18, Pain: 0, O2 sat: 98 on 2L Oxygen, Time: 03/14/2016 18:05. (18:05 CJEF) BP: 103/63, Pulse: 73, Resp: 20, O2 sat: 96 on 2L Oxygen, Time: 03/14/2016 18:32. (18:32 CJEF) BP: 101/61, Pulse: 82, Resp: 17, Pain: 0, O2 sat: 97 on 2L Oxygen, Time: 03/14/2016 19:16. (19:16 CJEF) BP: 96/58, Pulse: 73, Resp: 18, Temp: 98.2 (Tympanic), Pain: 0, O2 sat: 97 on 2L Oxygen, Time: 03/14/2016 20:17. (20:17 CJEF) BP: 95/51, Pulse: 75, Resp: 19, Pain: 0, O2 sat: 95 on 2L Oxygen, Time: 03/14/2016 20:56. (20:56 CJEF) NURSING ASSESSMENT: FALL RISK (14:54 CJEF) FALL RISK: Fall risk assessment findings include: History of falls (5), Bed rest greater than 2 days (5), No use of level of consciousness altering agents with mentation or cognitive changes (0), Change in blood pressure (1), Sensory deficits (1), Impaired mobility (3), Neurologic diagnosis (3), Elimination problems (3), Confusion (3), Total score 24, Fall risk. HENDRICH II FALL RISK: Hendrich II Fall Risk assessment findings include patient confused, disoriented or impulsive(4), not symptomatic or depressed, altered elimination(1), no dizziness or vertigo, female, no antiepileptics (anticonvulsants) administered, no Benzodiazepines administered, Unable to rise without assistance during test(4), Total score 9, Score greater than 5. Patient is at high risk for fall. Fall risk precautions initiated. NURSING ASSESSMENT: RESPIRATORY /CHEST (14:51 [facility]) CONSTITUTIONAL: Complex assessment performed, Patient arrives, via [facility], Unsteady gait, Lift to cart, History obtained from, [facility], penitentiary record, Patient appears, confused, NON-VERBAL, Patient cooperative, Patient alert, Patient is, disoriented, confused, Skin warm, Skin dry, Skin normal in color, Mucous membranes pink, Mucous membranes moist, Patient, with poor personal hygiene, PT ARRIVES WITH BRIEF WET, PT TO ED BY EMS FOR AMS. NH REPORTS THAT PT IS MORE ALTERED THAN NORMAL. PT WAS HERE RECENTLY AND DX WITH HYDROCEPHALUS AND SEIZURES. PT TRANSFERRED TO [facility] FOR A POSSIBLE SHUNT, THOUGH NO SHUNT WAS PLACED. PT TODAY IS LESS RESPONSIVE THAN NORMAL PER [place] ST[place]FF. PT ARRIVES ALERT, THOUGH NON-VERBAL PER HER NORMAL. EMS STATES THAT PT HAD WHEEZING ON ARRIVAL AND BRONCHOSPASMS, PER CAPNOMETRY. PT WAS ADMINISTERED A DUONEB WITH INCREASE IN OXYGEN SAT FROM 88% TO 100%. &a-1R&a+25V*p+0X*n5238M*c202B*c15G*c2P*p-0X&a-25V&a+1R Name: Carline Huertas : 1950 F65 MedRec: [id number] AcctNum: [id number] Prepared: Jenn Mar 14, 2016 21:35 by Interface Page [address] [facility] EMERGENCY RECORD PAIN: Pain level 0 No Hurt, using faces pain scoring. RESPIRATORY/CHEST: Lungs auscultated, Breath sounds with wheezing, scattered, Respiratory assessment findings include respiratory effort easy, Respirations regular, Conversing normally, Neck and chest exam findings include trachea midline, Chest expansion equal, Chest movement symmetrical, no signs of distress, Associated with cough, loose, no associated fever. ENT: Ear assessment findings include ear normal to inspection, Nasal assessment findings include nose normal to inspection, Mouth and throat assessment findings include mouth inspection normal. NOTES: Patient tolerated procedure well. SAFETY: Side rails up, Cart/Stretcher in lowest position, Call light within reach, Hospital ID band on. NURSING ASSESSMENT: SKIN (14:54 [facility]) SKIN: Skin assessment findings include skin warm, Skin dry, Skin normal in color, Notes: PT WITH MOISTURE ASSOCIATED BLANCHABLE REDNESS. NERISSA SCALE: (2) Sensory perception very limited, (2) Skin is very moist, (1) Patient is bedfast, (2) Very limited mobility, (2) Nutrition is probably inadequate, (1) Patient has problem moving, Nerissa Risk Total: 10. NOTES: Patient tolerated procedure well. SAFETY: Side rails up, Cart/Stretcher in lowest position, Call light within reach, Hospital ID band on. NURSING PROCEDURE: ADMISSION (21:03 [facility]) ADMISSION: Patient admitted to a medical-surgical unit, room number 417, Report called to, SYDNI SOLITARIO, Provided opportunity to answer questions, Admission orders received and completed, Transported via cart/stretcher, Accompanied by registered nurse, Transported with oxygen, Transported with saline lock, Summary of Care printed. BELONGINGS: Belongings remain with patient. NOTES: Patient tolerated procedure well. SAFETY: Side rails up, Cart/Stretcher in lowest position, Family at bedside, Call light within reach, Hospital ID band on. NURSING PROCEDURE: BEDSIDE RADIOLOGY (16:03 [facility]) PATIENT IDENTIFIER: Patient actively involved in identification process, Patient's identity verified by patient stating name, Patient's identity verified by patient stating date. BEDSIDE RADIOLOGY: Portable chest x-ray performed. NOTES: Patient tolerated procedure well. SAFETY: Side rails up, Cart/Stretcher in lowest position, Family at bedside, Call light within reach, Hospital ID band on. NURSING PROCEDURE: GLUING MACHINE FEEDER (14:55 [facility]) PATIENT IDENTIFIER: Patient actively involved in identification &a-1R&a+25V*p+0X*a6687O*c202B*c15G*c2P*p-0X&a-25V&a+1R Name: Carline Huertas : 1950 F65 MedRec: [id number] AcctNum: [id number] Prepared: Jenn Mar 14, 2016 21:35 by Interface Page [address] [facility] EMERGENCY RECORD process, Patient's identity verified by patient stating name, Patient's identity verified by patient stating date. GLUING MACHINE FEEDER: Cardiac monitoring indicated for mental status changes, Patient placed on mold sander, Heart rate: 85, showing normal sinus rhythm, Patient placed on non-invasive blood pressure monitor, Patient placed on continuous pulse oximetry, Adult/pediatric oxisensor applied. FOLLOW-UP: After procedure, alarms set and on, After procedure, patient tolerating monitoring. NOTES: Patient tolerated procedure well. SAFETY: Side rails up, Cart/Stretcher in lowest position, Call light within reach, Hospital ID band on. NURSING PROCEDURE: EKG CHART (15:08 [facility]) PATIENT IDENTIFIER: Patient actively involved in identification process, Patient's identity verified by patient stating name, Patient's identity verified by patient stating date. EKG: EKG indicated for AMS, 12 lead EKG performed on the left chest, first EKG. FOLLOW-UP: After procedure, EKG for interpretation given to Dr. RING. NOTES: Patient tolerated procedure well. SAFETY: Side rails up, Cart/Stretcher in lowest position, Family at bedside, Call light within reach, Hospital ID band on. NURSING PROCEDURE: IV (14:50 [facility]) PATIENT IDENITIFIER: Patient actively involved in identification process, Patient's identity verified by patient stating name, Patient's identity verified by patient stating date. IV SITE 1: IV therapy indicated for hydration, IV therapy indicated for medication administration, IV established, to the left hand, using a 20 gauge catheter, Saline lock established, Flushed with normal saline (mls): 10, Notes: STARTED DYE MIXER BY EMS. FOLLOW-UP SITE 1: After procedure, sterile transparent dressing applied. NOTES: Patient tolerated procedure well. SAFETY: Side rails up, Cart/Stretcher in lowest position, Family at bedside, Call light within reach, Hospital ID band on. NURSING PROCEDURE: LAB DRAW (16:00 CJ[facility]) PATIENT IDENTIFIER: Patient actively involved in identification process, Patient's identity verified by patient stating name, Patient's identity verified by patient stating date. LAB DRAW: Lab draw indicated for obtaining specimens for evaluation, Initial lab draw performed, by venipuncture, from right antecubital, in two attempts, Lab specimens labeled in the presence of the patient and sent to lab, Blood cultures labeled in the presence of the patient and sent to lab. NOTES: Patient tolerated procedure well. SAFETY: Side rails up, Cart/Stretcher in lowest position, Call &a-1R&a+25V*p+0X*f8666I*c202B*c15G*c2P*p-0X&a-25V&a+1R Name: Carline Huertas : 1950 F65 MedRec: [id number] AcctNum: [id number] Prepared: Jenn Mar 14, 2016 21:35 by Interface Page [address] [facility] EMERGENCY RECORD light within reach, Hospital ID band on. NURSING PROCEDURE: NURSE NOTES NURSES NOTES: Patient in no apparent distress, Patient resting quietly, Notes: PT RESTING IN BED QUIETLY WITH NO DISTRESS NOTED. PT DENIES ANY NEEDS. (15:12 CJEF) Notes: PT TAKEN OFF DUONEB AND AWAITING TO OBTAIN ROOM AIR SATURATIONS. (15:08 CJEF) Patient in no apparent distress, Notes: PT REMAINS AT 96% OXYGEN SAT ON ROOM AIR. (15:15 CJEF) Patient in no apparent distress, Patient resting quietly, Notes: PT RESTING IN BED WITH EYES SHUT. NO DISTRESS NOTED. (16:20 CJEF) Notes: PT'S SISTER AT BEDSIDE. (16:39 CJEF) Patient in no apparent distress, Patient resting quietly, Notes: PT RESTING IN BED QUIETLY WITH FAMILY AT BEDSIDE. NO DISTRESS NOTED. (17:27 CJEF) Patient in no apparent distress, Patient resting quietly, Notes: PT RESTING IN BED QUIETLY WITH FAMILY AT BEDSIDE. NO DISTRESS NOTED. (17:52 CJEF) Patient in no apparent distress, Patient resting quietly, Notes: PT RESTING IN BED QUIETLY WITH FAMILY AT BEDSIDE. NO DISTRESS NOTED. (20:56 CJEF) NURSING PROCEDURE: OXYGEN THERAPY PATIENT IDENTIFIER: Patient actively involved in identification process, Patient's identity verified by hospital ID bracelet, Patient's identity verified by EMS/park police. (14:48 CJEF) Patient actively involved in identification process, Patient's identity verified by patient stating name, Patient's identity verified by patient stating date. (15:18 CJEF) OXYGEN THERAPY: Oxygen therapy indicated for wheezing, Prior to procedure, breath sounds with wheezing, scattered, Notes: EMS STARTED A DUONEB TREATMENT EN ROUTE. PT CONTINUED UPON ARRIVAL ON THE DUONEB. (14:48 CJEF) 2L oxygen given, via nasal cannula applied, STARTED BACK ON NC AT 2LPM, RA SATS AT 94%., via nasal cannula. (15:18 CJEF) FOLLOW-UP: After procedure, oxygen saturation 100%, After procedure, breath sounds with wheezing, scattered. (15:08 CJEF) After procedure, oxygen saturation 98%. (15:18 CJEF) NOTES: Patient tolerated procedure well. (14:48 CJEF) Patient tolerated procedure well. (15:18 CJEF) SAFETY: Side rails up, Cart/Stretcher in lowest position, Family at bedside, Call light within reach, Hospital ID band on. (14:48 CJEF) Side rails up, Cart/Stretcher in lowest position, Family at bedside, Call light within reach, Hospital ID band on. (15:18 CJEF) NURSING PROCEDURE: PO CHALLENGE (17:25 [facility]) PATIENT IDENTIFIER: Patient's identity verified by hospital ID &a-1R&a+25V*p+0X*g3802Q*c202B*c15G*c2P*p-0X&a-25V&a+1R Name: Carline Huertas : 1950 F65 MedRec: [id number] AcctNum: [id number] Prepared: Jenn Mar 14, 2016 21:35 by Interface Page [address] [facility] EMERGENCY RECORD bracelet. PO CHALLENGE: Oral fluid challenge indicated for documenting oral intake prior to discharge, Notes: APPLESAUCE 4 OZ PO; TAKEN WITHOUT INCIDENT. NURSING PROCEDURE: URINE COLLECTION PATIENT IDENTIFIER: Patient actively involved in identification process, Patient's identity verified by patient stating name, Patient's identity verified by patient stating date. (16:19 CJEF) Patient actively involved in identification process, Patient's identity verified by patient stating name, Patient's identity verified by patient stating date. (20:16 CJEF) URINE COLLECTION FEMALE: Urine collected by straight cath, using an 8fr catheter kit, in one attempt, urine yellow in color, and clear. (16:19 CJEF) Simple stearns inserted, using a 16 fr pre-connected catheter, urine yellow in color. (20:16 CJEF) NOTES: Patient tolerated procedure well. (16:19 CJEF) SAFETY: Side rails up, Cart/Stretcher in lowest position, Call light within reach, Hospital ID band on. (16:19 CJEF) NOTES: Patient tolerated procedure well. (20:16 CJEF) SAFETY: Side rails up, Cart/Stretcher in lowest position, Family at bedside, Call light within reach, Hospital ID band on. (20:16 CJEF) ORDER DETAILS Order Name: GLUING MACHINE FEEDER ED, Status: Done, Time: 15:17 03/14/2016, User: NANCY, - Ordered for: Connor, ., - Entered by: KASSI Adam, Linnette Barajas Mar 14, 2016 15:17, - Quantity: 1, Order Name: CATH STRAIGHT ED, Status: Done, Time: 16:21 03/14/2016, User: NANCY, - Ordered for: MD Ring Lloyd, - Entered by: KASSI Adam, Linnette Barajas Mar 14, 2016 16:05, - Quantity: 1, Order Name: CBC with Differential, Status: Active, Time: 15:56 03/14/2016, User: KATLYN, - Ordered for: MD Ring Lloyd, - Entered by: MD Ring Lloyd - Jenn Mar 14, 2016 15:56, - Quantity: 1, Order Name: Comprehensive Metabolic Panel, Status: Active, Time: 15:56 03/14/2016, User: KATLYN, - Ordered for: MD Ring Lloyd, - Entered by: MD Ring Lloyd - Jenn Mar 14, 2016 15:56, - Quantity: 1, Order Name: Culture, Urine, Status: Active, Time: 15:56 03/14/2016, User: KATLYN, &a-1R&a+25V*p+0X*m8857T*c202B*c15G*c2P*p-0X&a-25V&a+1R Name: Carline Huertas : 1950 F65 MedRec: [id number] AcctNum: [id number] Prepared: Jenn Mar 14, 2016 21:35 by Interface Page [address] [facility] EMERGENCY RECORD - Ordered for: MD Ring Lloyd, - Entered by: MD Ring Lloyd - Sun Mar 14, 2016 15:56, - Quantity: 1, Order Name: EKG 12 Lead in Emergency Room, Status: Active, Time: 15:17 03/14/2016, User: CJEF, - Ordered for: Ersmdo, ., - Entered by: KASSI Adam, Linnette Jenn Mar 14, 2016 15:17, - Quantity: 1, Order Name: ERRT Oxygen Usage ER, Status: Active, Time: 15:17 03/14/2016, User: CJEF, - Ordered for: Ersmdo, ., - Entered by: KASSI Adam, Linnette Jenn Mar 14, 2016 15:17, - Quantity: 1, Order Name: ERRT Pulse Oximeter ER, Status: Active, Time: 15:17 03/14/2016, User: CJEF, - Ordered for: Ersmdo, ., - Entered by: KASSI Adam, Linnette Jenn Mar 14, 2016 15:17, - Quantity: 1, Order Name: STEARNS CATHETER ED, Status: Done, Time: 20:16 03/14/2016, User: NETTAEF, - Ordered for: MD Ring Lloyd, - Entered by: MD Ring Lloyd - Sun Mar 14, 2016 19:58, - Quantity: 1, Order Name: SALINE LOCK, Status: Done, Time: 15:17 03/14/2016, User: CJEF, - Ordered for: Ersmdo, ., - Entered by: KASSI Adam, Linnette Jenn Mar 14, 2016 15:17, - Quantity: 1, Order Name: Urinalysis with Microscopic, Status: Active, Time: 15:56 03/14/2016, User: LL, - Ordered for: MD Ring Lloyd, - Entered by: MD Ring Lloyd - Sun Mar 14, 2016 15:56, - Quantity: 1, Order Name: XR Chest 1 View Portable, Status: Active, Time: 15:57 03/14/2016, User: LL, - Ordered for: MD Ring Lloyd, - Entered by: MD Ring Lloyd - Sun Mar 14, 2016 15:57, - Quantity: 1. MEDICATION ADMINISTRATION SUMMARY Drug Name: Cipro tablet, Dose Ordered: 500 mg, Route: Oral, Status: Given, Time: 17:23 03/14/2016, Drug Name: *sodium chloride 0.9 % intravenous, Dose Ordered: 1 L, Route: IV Fluid Infusion, Status: Given, Time: 17:07 03/14/2016, *Additional information available in notes, Detailed record available in Medication Service section. MEDICATION SERVICE Cipro tablet: Order: Cipro tablet (ciprofloxacin HCl) - &a-1R&a+25V*p+0X*s9474D*c202B*c15G*c2P*p-0X&a-25V&a+1R Name: Carline Huertas : 1950 F65 MedRec: [id number] AcctNum: [id number] Prepared: Jenn Mar 14, 2016 21:35 by Interface Page [address] [facility] EMERGENCY RECORD Dose: 500 mg : Oral Schedule: Now Ordered by: Jas Ring MD Entered by: MD Jenn Kay Mar 14, 2016 17:09 Documented as given by: KASSI Crane Mar 14, 2016 17:23 Patient, Medication, Dose, Route and Time verified prior to administration. Amount given: 500MG, Site: Medication administered P.O., Correct patient, time, route, dose and medication confirmed prior to administration, Patient advised of actions and side-effects prior to administration, Allergies confirmed and medications reviewed prior to administration, Administered by OLIVIA SOLITARIO, Patient in position of comfort, Side rails up, Cart in lowest position, Family at bedside. : Follow Up : Response assessment performed, No signs or symptoms of allergic reaction noted, Advised not to ambulate without assistance, Patient in position of comfort, Side rails up, Cart in lowest position, Family at bedside. (18:06 [facility]) sodium chloride 0.9 % intravenous: Order: sodium chloride 0.9 % intravenous (0.9 % sodium chloride) - Dose: 1 L : IV Fluid Infusion Notes: (Bolus) after bolus, run NS at 150 ml/h Ordered by: Jas Ring MD Entered by: MD Jenn Kay Mar 14, 2016 17:03 Documented as given by: KASSI Crane Mar 14, 2016 17:07 Patient, Medication, Dose, Route and Time verified prior to administration. Amount given: 1000ML, IV SITE #1 IV fluids established for hydration, IV SITE #1 into left hand, IV SITE #1 1st bag hung, amount 1 Liter hung, IV SITE #1 bolus of 1000 ml established, IV SITE #1 After bolus completed rate changed to 150 ml/hr, via primary tubing, IV SITE #1 Tubing changed to pump tubing, Catheter placement confirmed via flush prior to administration, IV site without signs or symptoms of infiltration during medication administration, No swelling during administration, No drainage during administration, IV flushed after administration, Correct patient, time, route, dose and medication confirmed prior to administration, Patient advised of actions and side-effects prior to administration, Allergies confirmed and medications reviewed prior to administration, Administered by OLIVIA SOLITARIO. : Follow Up : Response assessment performed, No signs or symptoms of allergic reaction noted, _IV SITE #1:_, IV fluid infusion discontinued, on TueMar 14, 2016 18:23, Total fluid hydration time IV site 1 1 hour, 20 minutes, ., Total amount infused: 1L, Advised not to ambulate without assistance, Patient in position of comfort, Side rails up, Cart in lowest position, Family at bedside. (18:23 CJEF) HPI MENTAL STATUS CHANGES (16:51 [facility]) CHIEF COMPLAINT: Patient presents for evaluation of lethargy, Patient presents for evaluation of mental status &a-1R&a+25V*p+0X*n2809C*c202B*c15G*c2P*p-0X&a-25V&a+1R Name: Carline Huertas : 1950 F65 MedRec: [id number] AcctNum: [id number] Prepared: [place] Mar 14, 2016 21:35 by Interface Page [address] [facility] EMERGENCY RECORD changes, Patient presents for evaluation of pt was seen on Mar in this ed for ams and seizures. dx'd here with hydrocephalus and confirmed the presence of seizures. sent to [facility] where pt was started on keppra and sched for further evaluation in 2 weeks. pt is now much more alert and aware of her surroundings than on the (but still mostly non-verbal). NH staff and pt's family concerned that pt isn't yet back to normal and wanted to send pt back to [facility]. pcp, however, directed pt here, instead. HISTORIAN: [facility], Additional history obtained from EMS, pcp. LOCATION: Symptoms are generalized. QUALITY: Patient is, oriented to person, responsive to verbal stimuli, Demetria coma score, Eye opening: (4) - Spontaneous, Verbal: (3) - Inappropriate words, Motor: (5) - Localizes Pain, GCS Total: 12. SEVERITY: Maximum severity of symptoms mild, Currently symptoms are mild, no seizures or evidence of pain. TIME COURSE: Patient unable to describe onset of symptoms. ASSOCIATED WITH: Associated symptoms reviewed, Associated with weakness. RELIEVED BY: Patient's condition relieved by nothing. RISK FACTORS: No CVA/TIA risk factors, No subarachnoid hemorrhage risk factors. ROS CONSTITUTIONAL: Historian reports fatigue, reports lethargy. (18:36 LLDO) EYES: Negative eye review of systems, Historian denies eye pain, denies eye redness, denies eye discharge. (18:40 LLDO) ENT: Negative ears, nose, throat review of systems, Historian denies epistaxis, denies rhinorrhea, denies sinus pain, denies sore throat. (18:40 LLDO) CARDIOVASCULAR: Negative cardiovascular review of systems, Historian denies chest pain, no radiation, Historian denies diaphoresis, denies syncope. (18:40 LLDO) RESPIRATORY: Negative respiratory review of systems, Historian denies cough, denies shortness of breath, denies sputum. (18:40 LLDO) GI: Negative gastrointestinal review of systems, Historian denies abdominal pain, denies constipation, denies diarrhea, denies nausea, denies vomiting. (18:40 LLDO) GENITOURINARY FEMALE: Negative genitourinary review of systems, Historian denies dysuria, denies frequency, denies urgency. (18:40 LLDO) MUSCULOSKELETAL: Negative musculoskeletal review of systems, Historian denies arthralgias, denies back pain, denies injury, denies myalgias, denies neck pain. (18:40 LLDO) SKIN: Negative skin review of systems, Historian denies cellulitis, denies rash, denies skin changes, denies skin lesions. (18:40 LLDO) NEUROLOGIC: Historian denies lethargy, reports mental status &a-1R&a+25V*p+0X*z5034B*c202B*c15G*c2P*p-0X&a-25V&a+1R Name: Carline Huertas : 1950 F65 MedRec: [id number] AcctNum: [id number] Prepared: Jenn Mar 14, 2016 21:35 by Interface Page [address] [facility] EMERGENCY RECORD changes. (18:36 LLDO) HEMO/LYMPHATIC: Normal hematologic/lymphatic system review, Historian denies abnormal blood clotting, denies gum bleeding, denies petechiae. (18:40 LLDO) ALLERGIC/IMMUNOLOGIC: Normal allergy/immunologic system review, Historian denies eczema, denies environmental allergies, denies food allergies. (18:40 LLDO) PSYCHIATRIC: Negative psychiatric review of systems, Historian denies alcohol abuse, denies anxiety, denies depression, denies drug abuse, denies hallucinations. (18:40 LLDO) NOTES: All systems reviewed, negative except as described above. (18:36 LLDO) PAST MEDICAL HISTORY MEDICAL HISTORY: Notes: VERIFIED 02-29-16, Past medical history includes history of hyperlipidemia, Notes: Dementia, Down's Syndrome, hypothyroidism, Asthma; Dysphagia; Failed swallow study. HYPOPOTASSEMIA, LEUKOCYTOSIS, CANDIDIASIS OF THE MOUTH, PSEUDOBULBAR AFFECT, GERD, OSTEOPOROSIS. HYDROCEPHALUS. (14:50 CJEF) FEMALE SURGICAL HISTORY: VERIFIED --, NOT AVAILABLE ON [place] PP[place]. (14:50 CJEF) PSYCHIATRIC HISTORY: Notes: VERIFIED --16, Notes: Dementia, BIPOLAR, ANXIETY, DEPRESSION. (14:50 CJEF) SOCIAL HISTORY: Patient denies alcohol use, Patient denies drug use, Patient has no smoking history, Patient denies alcohol use, Patient denies drug use, Patient has no smoking history, Lives in assisted care facility, Name of institution [facility],. (14:50 CJEF) FAMILY HISTORY: No known family hisotry. (14:50 CJEF) NOTES: Nursing records reviewed, Agree with nursing records, Medication list reviewed. (18:40 LLDO) PHYSICAL EXAM CONSTITUTIONAL: Vital Signs Reviewed, Patient afebrile, Pulse normal, Blood pressure normal, Respiratory rate normal, Normal pulse oximetry, Patient appears non toxic, Patient appears pain free, Patient alert and oriented to person, place and time, Nursing notes reviewed. (18:37 LLDO) HEAD: Head exam normal, Head exam included findings of head atraumatic, normocephalic. (18:40 LLDO) EYES: Eye exam included findings of eyelids normal to inspection, Pupils equally round and reactive to light, Extraocular muscles intact, Conjunctiva, injected bilaterally, not edematous, Sclera normal. (18:37 LLDO) ENT: Mouth exam included findings of, mucous membranes dry, mucous membranes tacky. (18:37 LLDO) NECK: Neck exam normal, Neck exam included findings of normal range of motion, Trachea midline, no meningeal signs, no tenderness. (18:40 LLDO) RESPIRATORY CHEST: Respiratory and chest exam normal, &a-1R&a+25V*p+0X*r9643A*c202B*c15G*c2P*p-0X&a-25V&a+1R Name: Carline Huertas : 1950 F65 MedRec: [id number] AcctNum: [id number] Prepared: Jenn Mar 14, 2016 21:35 by Interface Page [address] [facility] EMERGENCY RECORD Respiratory exam included findings of, Chest exam included findings of chest movement symmetrical, Chest expansion equal. (18:40 LLDO) CARDIOVASCULAR: Cardiovascular assessment normal, Cardiovascular exam included findings of heart rate regular rate and rhythm, Heart sounds normal. (18:40 LLDO) ABDOMEN FEMALE: Abdominal exam included findings of abdomen nontender, Bowel sounds normal, Liver normal, Spleen normal, no distension, no mass, no pulsatile masses, no peritoneal signs. (18:37 LLDO) BACK: Back exam normal, Back exam included findings of normal inspection, range of motion normal. (18:40 LLDO) UPPER EXTREMITY: Upper extremity exam included findings of inspection normal, Range of motion normal. (18:37 LLDO) LOWER EXTREMITY: Lower extremity exam included findings of inspection normal, Range of motion normal. (18:37 LLDO) NEURO: Neuro exam normal, Neuro exam findings include patient oriented to person, place and time, Speech normal, Demetria coma scale 15. (18:40 LLDO) SKIN: Skin exam normal, Skin exam included findings of skin warm, dry, and normal in color, no rash. (18:40 LLDO) PSYCHIATRIC: Psychiatric exam normal, Psychiatric exam included findings of patient oriented to person place and time, Normal affect. (18:40 LLDO) EVENTS TRANSFER: Triage to Emergency Triage. (14:48 [facility]) Emergency Triage to Main ED -01. (14:51 CJEF) Emergency Main ED -01 to Triage (Hold Bed). (20:20 CB) Return to Emergency Main ED -01. (20:34 CJEF) Removed from Emergency Main ED -01. (21:23 CJEF) DOCTOR NOTES (20:10 LLDO) TEXT: pt's mental status on arrival to the ed was considerably better than on Mar and has continued to improve as she has been given fluid. sister here is very impressed at improvement. have spoken to dr. Jimenez who will admit now for better rehydration and management of UTI and secondary AMS. Sister and niece (who has POA) agree with this plan. PATIENT PLAN: The patient will be admitted to the hospital. PROBLEM LIST No recorded problems DIAGNOSIS (20:15 LLDO) FINAL: PRIMARY: DEHYDRATION, ADDITIONAL: Dementia, OBSTRUCTIVE HYDROCEPHALUS, UTI SITE NOT SPECIFIED. DISPOSITION PATIENT: Disposition Type: Admit, Disposition: [facility] &a-1R&a+25V*p+0X*n7391V*c202B*c15G*c2P*p-0X&a-25V&a+1R Name: Carline Huertas : 1950 F65 MedRec: [id number] AcctNum: [id number] Prepared: Jenn Mar 14, 2016 21:35 by Interface Page [address] [facility] EMERGENCY RECORD [facility]. (20:15 LLDO) Patient left the department. (21:23 CJEF) PRESCRIPTION No recorded prescriptions IMAGING DNR - ADVANCE DIRECTIVE: Image captured from scanner. (15:39 CJEF) [place] PAPERWORK: Image captured from scanner. (15:39 CJEF) Page 2 added. Image captured from scanner. (15:39 CJEF) Page 3 added. Image captured from scanner. (15:39 CJEF) Page 4 added. Image captured from scanner. (15:40 CJEF) Page 5 added. Image captured from scanner. (15:40 CJEF) Page 6 added. Image captured from scanner. (15:40 CJEF) Page 7 added. Image captured from scanner. (15:40 CJEF) Page 8 added. Image captured from scanner. (15:40 CJEF) Page 9 added. Image captured from scanner. (15:40 CJEF) Page 10 added. Image captured from scanner. (15:40 CJEF) Page 11 added. Image captured from scanner. (15:40 CJEF) Page 12 added. Image captured from scanner. (15:40 CJEF) Page 13 added. Image captured from scanner. (15:41 CJEF) Page 14 added. Image captured from scanner. (15:41 CJEF) Page 15 added. Image captured from scanner. (15:41 CJEF) Page 16 added. Image captured from scanner. (15:41 CJEF) Page 17 added. Image captured from scanner. (15:42 CJEF) Page 18 added. Image captured from scanner. (15:42 CJEF) Page 19 added. Image captured from scanner. (15:42 CJEF) Page 20 added. Image captured from scanner. (15:42 CJEF) Page 21 added. Image captured from scanner. (15:42 CJEF) Page 22 added. Image captured from scanner. (15:42 CJEF) Page 23 added. Image captured from scanner. (15:42 CJEF) Page 24 added. Image captured from scanner. (15:42 CJEF) Page 25 added. Image captured from scanner. (15:43 CJEF) Page 26 added. Image captured from scanner. (15:43 CJEF) Page 27 added. Image captured from scanner. (15:43 CJEF) Page 28 added. Image captured from scanner. (15:43 CJEF) EMS CALL IN: Image captured from scanner. (15:43 CJEF) *EKG: Image captured from scanner. (16:06 CJEF) *SUPPLY CHARGE SHEET: Image captured from scanner. (21:23 CESAR) ADMIN (20:16 LLDO) DIGITAL SIGNATURE: MD Ring Lloyd. MD Ring Lloyd. MD Ring Lloyd. MD Ring Lloyd. MD Ring Lloyd. MD Ring Lloyd. MD Hayes, Jas. MD Ring Lloyd. &a-1R&a+25V*p+0X*g0323L*c202B*c15G*c2P*p-0X&a-25V&a+1R Name: Carline Huertas : 1950 F65 MedRec: [id number] AcctNum: [id number] Prepared: TueMar 14, 2016 21:35 by Interface Page [address] [facility] EMERGENCY RECORD MD Ring Lloyd. RESULTS (16:56 [facility]) RADIOLOGY: XR Chest 1 View Portable Observe DT: TueMar 14, 2016 15:58, CXRP ONE VIEW CHEST: Comparison: 03-11-16 History: Altered mental status. FINDINGS: Portable upright chest: Normal cardiac silhouette. The pulmonary vessels and hilum are normal. Lungs are hyperinflated wit h chronic changes. No masses or consolidation. No pneumothorax or osseous abnormalities. IMPRESSION: Hyperinflation, chronic changes. POS: [facility] . LABORATORY: CBC with Differential Collection DT: TueMar 14, 2016 16:17, White Blood Cell (WBC) Count 9.8 thou/uL, Range (4.8-10.8), *Red Blood Cell (RBC) Count 4.13 - L mill/uL, Range (4.20-5.40), Hemoglobin 13.8 g/dL, Range (12.0-16.0), Hematocrit 43.4 %, Range (36.0-47.0), *Mean Corpuscular Volume 104.9 - H fl, Range (81.0-99.0), *Mean Corpuscular Hemoglobin 33.4 - H pg, Range (27.0-31.0), *Mean Corpuscular HGB CONC 31.8 - L g/dL, Range (32.0-36.0), RBC Distribution Width 13.8 %, Range (11.5-14.5), Platelet Count 203 thou/uL, Range (130-400), Mean Platelet Volume 8.0 fL, Range (7.4-10.4), *Neutrophil 76 - H %, Range (42-75), Band 8 %, Range (5-11), *Lymphocytes 11 - L %, Range (21-51), Monocytes 5 %, Range (0-10), Anisocytosis SLIGHT = 6-15 cells (100X), Range (0-5/hpf), Macrocytosis SLIGHT = 6-15 cells (100X), Range (0-5/hpf). Urinalysis with Microscopic Collection DT: [place] Mar 14, 2016 16:42, See comment below , Comment may straight cath if necessary , Color Dark Yellow , Range (Yellow), Clarity Slightly Cloudy , Range (Clear), Specific [place], Urine 1.032 , Range (1.002-1.036), pH, Urine 6.0 , Range (5.0-9.0), &a-1R&a+25V*p+0X*c5663E*c202B*c15G*c2P*p-0X&a-25V&a+1R Name: Carline Huertas : 1950 F65 MedRec: [id number] AcctNum: [id number] Prepared: Jenn Mar 14, 2016 21:35 by Interface Page [address] [facility] EMERGENCY RECORD Leukocyte Negative , Range (Negative), Nitrite Negative , Range (Negative), *Protein, Urine (Dipstick) 100 - H mg/dL, Range (Neg-Trace), Glucose, Urine (Dipstick) Negative mg/dL, Range (Negative), *Ketone, Urine 15 - H mg/dL, Range (Negative), Urobilinogen 0.2 mg/dL, Range (0.2-1.0), *Bilirubin Small - H , Range (Negative), CAUTION Urine, Bilirubin has a high incidence of false positive results due to urine color, interference. Interpret results in conjunction with other clinical, findings. , *Blood, Urine Large - H , Range (Negative), *RBC/HPF 21-50 - H HPF, Range (0-3), *WBC/HPF 11-20 - H HPF, Range (0-3), Squamous Epithelial 0-3 HPF, Range (0-3), Transitional Epithelial 0-3 HPF, Range (0-3), Renal Epithelial 0-3 HPF, Range (0-3), *Bacteria/HPF 3+ - H HPF, Range (None Seen), *Hyaline Casts/LPF 7-10 HYALINE CAST - LPF, * H , Range (0-3 Hyaline). Comprehensive Metabolic Panel Collection DT: Jenn Mar 14, 2016 16:17, *Sodium 147 - H mmol/L, Range (136-145), Potassium 4.5 mmol/L, Range (3.5-5.1), Chloride 106 mmol/L, Range (98-107), Carbon Dioxide 26 mmol/L, Range (23-31), Anion Gap 20 mmol/L, Range (10-20), BUN (Urea Nitrogen) 19 mg/dL, Range (9.8-20.1), Creatinine 0.80 mg/dL, Range (0.6-1.1), Estimated GFR-MDRD 72 , Reference Range for Estimated GFR: Greater than 90, mL/min/1.73 m2 NOTE: The MDRD equation has not been validated for use, with the elderly (over 70 years of age), women, patients with, serious comorbid condition or persons with extremes of body size, muscle, mass, or nutritional status. , Glucose 95 mg/dL, Range (80-115), Calcium 8.4 mg/dL, Range (7.8-10.44), Bilirubin, Total 0.3 mg/dL, Range (0.2-1.2), Protein, Total 6.3 g/dL, Range (5.8-8.1), NOTE: Plasma values are generally 0.3 to 0.5 g/dL higher than serum values, due to the presence of fibrinogen. , *Albumin 3.0 - L g/dL, Range (3.4-4.8), Globulin 3.3 g/dL, Range (2.4-3.5), *Alb/Glob Ratio 0.9 - L g/dL, Range (1.2-2.2), Alkaline Phosphatase 67 U/L, Range (40-150), &a-1R&a+25V*p+0X*s7215J*c202B*c15G*c2P*p-0X&a-25V&a+1R Name: Carline Huertas : 1950 F65 MedRec: [id number] AcctNum: [id number] Prepared: Jenn Mar 14, 2016 21:35 by Interface Page [address] [facility] EMERGENCY RECORD AST (SGOT) 26 U/L, Range (5-34), ALT (SGPT) 16 U/L, Range (0-55). Ramos: CESAR=KASSI Muhammad, Linnette KAUR=JAIDEN Carlson Carrie CJEF=KASSI Adam, Linnette MITTAL=KASSI Seo, Sydni POTTS=MD Hayes, Jas &a-1R&a+25V*p+0X*b8491D*c202B*c15G*c2P*p-0X&a-25V&a+1R Name: Aleksandar Carline Hannah : 1950 F65 MedRec: [id number] AcctNum: [id number] Prepared: Jenn Mar 14, 2016 21:35 by Interface Page 16 of 16 pMD [facility]TDD
[2016-03-14 22:07] VITALS: BMI 21.5
[2016-03-15] MEDS ORDERED: methylPREDNISolone Sod Succ/PF 125 MG/2 ML VIAL IVP SCH (00:30)
[2016-03-15] MEDS ORDERED: Ondansetron HCl/PF 4 MG/2 ML Vial SLOW IVP PRN (03:44)
[2016-03-15] MEDS ORDERED: Acetaminophen 325 MG TAB PO PRN ×3 (03:44→09:03)
[2016-03-15] MEDS ORDERED: Enoxaparin Sodium 40 MG/0.4 ML SYRINGE SC SCH (03:45)
[2016-03-15 06:45] LABS: #Basophils 0.1 thou/uL (0.0-0.2); #Lymphocytes 0.2 thou/uL (1.20-3.40); #Monocytes 0.1 thou/uL (0.11-0.59); #Neutrophils 7.8 thou/uL (1.40-6.50); %Basophils 0.7 % (0.0-1.0); %Eosinophils 0.1 % (0.0-10.0); %Lymphocytes 2.9 % (21.0-51.0); %Monocytes 1.3 % (0.0-10.0); %Neutrophils 94.9 % (42.0-75.0); Hemoglobin 12.6 g/dL (12.0-16.0); Mean Corpuscular HGB CONC 32.8 g/dL (32.0-36.0); Mean Corpuscular Hemoglobin 33.6 pg (27.0-31.0); Mean Corpuscular Volume 102.4 fl (81.0-99.0); Mean Platelet Volume 7.7 fL (7.4-10.4); Platelet Count 202 thou/uL (130-400); RBC Distribution Width 13.8 % (11.5-14.5); Red Blood Cell (RBC) Count 3.74 mill/uL (4.20-5.40); White Blood Cell (WBC) Count 8.2 thou/uL (4.8-10.8)
[2016-03-15 06:49] LABS: Anion Gap 18 mmol/L (10-20)
[2016-03-15 07:44] LABS: Albumin 2.9 g/dL (3.4-4.8); Alkaline Phosphatase 63 U/L (40-150); BUN (Urea Nitrogen) 15 mg/dL (9.8-20.1); Bilirubin, Total Less than 0.3 mg/dL (0.2-1.2); Calc. Creatinine Clearance 63 mL/min (70-130); Calcium 8.5 mg/dL (7.8-10.44); Carbon Dioxide 24 mmol/L (23-31); Chloride 108 mmol/L (98-107); Estimated GFR-MDRD 89; Globulin 3.4 g/dL (2.4-3.5); Glucose 120 mg/dL (80-115); Potassium 4.2 mmol/L (3.5-5.1); Protein, Total 6.3 g/dL (5.8-8.1); Sodium 146 mmol/L (136-145)
[2016-03-15 07:45] LABS: ALT (SGPT) 14 U/L (0-55); AST (SGOT) 17 U/L (5-34)
[2016-03-15] MEDS: methylPREDNISolone Sod Succ/PF 125 MG/2 ML VIAL IVP SCH ×2 (08:36→20:34)
[2016-03-15] MEDS ORDERED: Artificial Tear Sol 15 ML BOT EA EYE PRN (08:57)
[2016-03-15] MEDS ORDERED: Guaifenesin DM 100-10/5 ML UDCUP PO PRN (08:59)
[2016-03-15] MEDS ORDERED: Meropenem 1 GM in Sodium Chloride 0.9% 100 ML IVPB SCH (10:00)
--- NOTE | 2016-03-15 10:21 | RAD ---
FRONTAL RADIOGRAPH CHEST: Date: 03-15-16 Comparison: 03-14-16 History: Abnormal lung sounds. FINDINGS: There is no pneumothorax. There is mild blunting of bilateral costophrenic angles suggesting new sm all pleural effusions. There is perihilar and bibasilar interstitial prominence with bibasilar new airspace disease. IMPRESSION: New small bilateral pleural effusions with worsening perihilar and bibasilar interstitial prominence and new bibasilar airspace disease. Findings may signify developing pulmonary edema or infectious pneumonitis/aspiration. Follow up following treatment to document resolution advised. POS: [facility]
[2016-03-15] MEDS: Aspirin 81 mg Enteric Coated Tablet PO SCH (10:28)
[2016-03-15] MEDS: Loratadine 10 MG TAB PO SCH (10:28)
[2016-03-15] MEDS ORDERED: IMIPENEM IVPB SCH (14:00)
[2016-03-15] MEDS ORDERED: CILASTATIN IVPB SCH (14:00)
[2016-03-15] MEDS: Meropenem 1 GM in Sodium Chloride 0.9% 100 ML IVPB SCH ×2 (14:30→20:35)
--- NOTE | 2016-03-15 19:15 | HP ---
DATE OF ADMISSION: 03/14/2016 ATTENDING: Dr. Valdes REASON FOR ADMISSION: Altered mental status/dehydration, urinary tract infection. HISTORY OF PRESENT ILLNESS: Ms. Huertas is a 65-year-old with Down syndrome associated with profou nd mental retardation and dementia. She is a long-term resident of [facility]. The leny spaulding was reported to have new onset of seizure-like activities noted on 03/11/2014. She was then evaluated initially in [facility] ER. Per report, there was a single tonic seizure fol lowed by a postictal period. 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 The patient was subsequently transferred to [facility] in [place] for further N eurosurgery eval per family request. The patient was started on Keppra 500 mg p.o. b.i.d. and was s ent back to [facility] on the night of 03/12/2016. The patient was reported by the nursing staff that she had not been back to her baseline mental status since she was admitted back to the halfway. She has been sleeping for the most part, with open up her eyes spontaneously with verbal or/t actile stimuli. She has not been eating for the last couple of days prior to admission. The osiris scruggs's baseline mental status was reported at being awake, alert, and nonverbal, but tries to say some words. After discussing with the family represented by Liana Banuelos sister and Chino Powell (R saul's daughter)/RP the patient was sent back to [facility] ER for further evaluation. The osiris scruggs was reported at time of ER evaluation, the patient was awake, alert, and [facility]. There was no recurrence of seizure since. The patient's x-ray showed hyperin flation and chronic changes, otherwise no reported masses consolidation, pneumothorax, or osseous ab normalities. The patient was subsequently admitted for supportive medical management. When the laura ient was admitted on the floor around midnight, staff reported that she has been having wheezing and crackly breath sounds. Her O2 sats has been stable between 91-93 2 liters per nasal cannula. The patient was started on bronchodilator treatment and IV steroid. Staff reports the patient's overall clinical status has been stable overnight with no signs of respiratory distress, tachypnea or O2 de saturation noted, but remains to have coarse breath sounds. When seen this morning on the floor, th e patient was asleep, resting comfortably in bed. She opens her eyes spontaneously with verbal and tactile stimuli. She appears tired and easily gets back to sleep. The patient was diagnosed to hav e clinical dehydration and urinary tract infection from the ER. PAST MEDICAL HISTORY: 1. Down syndrome, hypothyroidism, history of presenile dementia with behavioral issues. 2. History of sleep apnea requiring CPAP, but not been compliant with CPAP due to intolerance. 3. Asthma. 4. Profound mental retardation. 5. Depression with anxiety and episode mood disorder. 6. Dysphagia with recurrent past history of aspiration pneumonia. Family declined enteral feeding/ PEG tube placement. 7. History of reflux symptoms. 8. History of aspirate recurrent aspiration pneumonia. Last episode was on 02/29/2016. She was tr eated with Rocephin, clindamycin and eventually sent back to the halfway on moxifloxacin that s he completed on 03/11/2016 9. History of osteoporosis as history of pseudobulbar affect. 10. History of unsteady gait at the risk for falling. 11. History of failed swallow study. 12. History of hypertension, resolved. 13. History of dyslipidemia, resolved. ALLERGIES: Allergies to SULFA, TOMATOES. SURGICAL HISTORY: None. 1. Previous procedure modified barium swallow study on 08/30/2015 showed evidence of aspiration. 2. Hospitalization on 07/18/2014, shortness of breath and wheezing. 3. On 08/12/2015, shortness of breath and wheezing, acute bronchitis and urinary tract infection. 4. On 03/11/2016, ER evaluation secondary to new onset seizure activities diagnosed with noncommuni cating hydrocephalus for medical management only. No inpatient management required. FAMILY HISTORY: Noncontributory. SOCIAL HISTORY: No ETOH or tobacco use. The patient is single. REVIEW OF SYSTEMS: Unobtainable secondary to profound mental status/current cognitive status. LABORATORY DATA: On 03/14/2016; WBC 9.8, hemoglobin 13.8, hematocrit 43.4, platelets 203, neutrophi ls 76, lymphocytes 11, bands 8. CMP 1817. Sodium 147, potassium 4.5, chloride 106, BUN 19, creatin ine 0.80, estimated GFR of 72, glucose 95. Liver function tests within normal limits. Albumin 3.0. Urine RBC 21-50, urine WBC 11-20, bacteria 3+ specific gravity 1.032. Urine protein 100, urine ke tones 15. Urine blood large. Urine color dark yellow, urine clarity slightly cloudy, urine culture pending. CURRENT LABORATORIES: On 03/15/2016, WBC 8.2, hemoglobin 12.6, hematocrit 38.3, platelets 202, neut rophils 94.9, bands 9. Chemistry with sodium 146, potassium 4.2, chloride 108, BUN 15, creatinine 0 .67, estimated GFR 89, glucose 120. Albumin 2.9. Liver function tests within normal limits. Chest x-ray on 03/15/2016, new small bilateral pleural effusions with worsening perihilar and bibasi lar interstitial prominence and new bibasilar airspace disease. Findings may signify developing pul monary edema or infectious pneumonitis/aspiration. PHYSICAL EXAMINATION: VITAL SIGNS: Temperature 98.3, pulse 76, respirations 20, O2 saturation is 92% at 2 liters per nasa l cannula. Weight 103 pounds. GENERAL: Patient is asleep, resting comfortably in bed, no signs of agony. Breathing with mouth op en. Awakens easily with both verbal and tactile stimuli, opens not in distress, lethargic, not in d istress. HEENT: Positive Down's facies, PERRLA intact EOM. Anicteric sclerae. Oral mucosa is dry. No oral lesions. No facial asymmetry. NECK: Supple. No LAD, no swelling, no signs of meningismus. CHEST: Nonlabored breathing. Normal expansion. LUNGS: Good air entry bilaterally. Positive expiratory rhonchi and rales. Diminished breath sound s bibasilar. No wheezing. ABDOMEN: Soft, normoactive bowel sounds, nondistended, nontender. No rebound, no guarding. Negati ve CVA tenderness bilaterally. EXTREMITIES: No edema, no cyanosis. SKIN: Good skin turgor and intact. NEUROLOGIC: Limited due to current mental status. Positive pulses full and symmetrical movements o f both extremities. ASSESSMENT: 1. Altered mental status, unspecified multifactorial. 2. Dehydration secondary to poor oral intake from #1. 3. Chronic dysphagia, not a candidate for enteral feeding. 4. Recurrent aspiration pneumonia. 5. Bilateral pleural effusion, new onset. 6. Hypothyroidism. 7. Down syndrome. 8. Gastroesophageal reflux disease. 9. High risk for aspiration. PLAN: 1. The patient is admitted for supportive medical management only. The patient has developed overn ight based on clinical findings and as evidenced by imaging studies a new onset of aspiration pneumo rubio. We will start empiric IV antibiotic treatment with imipenem IV. 2. We will continue IV steroids to visit to switch to oral and taper off when indicated. Continue bronchodilator treatments and continuous O2 supplement. 3. Chronic hypoxia and asthma and remains n.p.o. until evaluated by ST. Again, the patient has had high risk for aspiration. She develops note develops aspiration pneumonia with bowel out oral inta ke for around 48 hour period. We will continue home medications as modified per list. Of note some of the long-term medications were discontinued at this time. 4. Gastrointestinal prophylaxis with PPI. DVT prophylaxis with Lovenox. I had a lengthy discussion with the family on the phone today represented by Liana Banuelos sister a nd Chino Powell, niece who acts as RP and surrogate decision makers for the patient. Discussed t he patient's current condition and guarded prognosis. I discussed the above findings and current me ntal status. The patient's family was encouraged to ask questions. All their questions were answer ed to their satisfaction. Family was notified with complication of the possible complication of the current status from dehydration, poor oral intake, recurrent aspiration and beginning pleural effus ion. The patient does not have any recurrence of seizure activities a this time, we will hold off K eppra until level is known. May also withhold Depakote until level is known. Family was notified t hat we discontinued IV fluid. The volume hydration secondary to beginning pleural effusion that may have complicated by volume hydration. Family emphasized once again that they do not want enteral f eeding including PEG tube placement. After lengthy discussions family is agreeable to continue comf ort measures and symptomatic treatment at this time. We will highly consider palliative care with effie ordaz. CODE STATUS: Confirms DO NOT RESUSCITATE, DO NOT INTUBATE status. Further recommendations depending on the hospital course.
[2016-03-15] MEDS: Simvastatin 20 MG TAB PO SCH (20:34)
[2016-03-15] MEDS: Budesonide 0.5 MG/2 ML NEB NEB SCH (20:39)
[2016-03-16] MEDS: Enoxaparin Sodium 40 MG/0.4 ML SYRINGE SC SCH (05:20)
[2016-03-16] MEDS: Levothyroxine Sodium 88 MCG TAB PO SCH (05:21)
[2016-03-16] MEDS: Meropenem 1 GM in Sodium Chloride 0.9% 100 ML IVPB SCH ×3 (05:21→21:03)
[2016-03-16] MEDS: Budesonide 0.5 MG/2 ML NEB NEB SCH ×2 (06:15→19:40)
[2016-03-16] MEDS: Loratadine 10 MG TAB PO SCH (08:29)
[2016-03-16] MEDS: Multivitamin W/ Minerals 1 TAB PO SCH (08:29)
[2016-03-16] MEDS: Aspirin 81 mg Enteric Coated Tablet PO SCH (08:29)
--- NOTE | 2016-03-16 08:55 | RAD ---
CHEST ONE VIEW: History: Pneumonia. Comparison: 03-15-16 FINDINGS: The cardiac silhouette is magnified by projection. Patchy bibasilar infiltrates are similar in appe arance to the prior exam. Mediastinum is midline. Pulmonary vasculature is upper limits of normal. There is no evidence of pneumothorax. IMPRESSION: Patchy bibasilar infiltrates and other findings are stable. Continued radiographic follow up is sug gested. POS: [facility]
[2016-03-16] MEDS: Sodium Chloride 0.45% 1,000 ML IV SCH (13:56)
[2016-03-16] MEDS: Simvastatin 20 MG TAB PO SCH (20:16)
[2016-03-17] MEDS: Levothyroxine Sodium 88 MCG TAB PO SCH (05:24)
[2016-03-17] MEDS: Meropenem 1 GM in Sodium Chloride 0.9% 100 ML IVPB SCH ×3 (05:24→21:05)
[2016-03-17] MEDS: Enoxaparin Sodium 40 MG/0.4 ML SYRINGE SC SCH (05:24)
[2016-03-17] MEDS: Budesonide 0.5 MG/2 ML NEB NEB SCH ×2 (05:56→19:54)
[2016-03-17] MEDS: Multivitamin W/ Minerals 1 TAB PO SCH (08:14)
[2016-03-17] MEDS: Aspirin 81 mg Enteric Coated Tablet PO SCH (08:14)
[2016-03-17] MEDS: Loratadine 10 MG TAB PO SCH (08:14)
[2016-03-17] MEDS: Sodium Chloride 0.45% 1,000 ML IV SCH (08:19)
[2016-03-17] MEDS ORDERED: methylPREDNISolone 4 mg Tablet PO SCH (10:45)
[2016-03-17] MEDS ORDERED: Sodium Chloride 0.45% 1,000 ML BAG ONE (12:24)
[2016-03-17] MEDS: methylPREDNISolone 4 mg Tablet PO SCH ×3 (12:26→21:04)
--- NOTE | 2016-03-17 12:57 | RAD ---
PORTABLE UPRIGHT FRONTAL CHEST RADIOGRAPH: Date: 03-17-16 Comparison: 03-16-16 History: Increasing congestion. FINDINGS: No pneumothorax is seen. There is pulmonary vascular congestion, worsened. There is perihilar nons pecific interstitial prominence, worsened as well. There is focal density in the right lung base, worsened since the prior exam. IMPRESSION: Increasing pulmonary vasculature congestion and perihilar interstitial prominence with developing fo rae opacity in the right base. These findings may be explained by asymmetric pulmonary edema or inf ectious pneumonitis/aspiration involving the right lung base. Follow up PA and lateral chest imagin g following treatment advised to document resolution. POS: [facility]
[2016-03-17] MEDS: Simvastatin 20 MG TAB PO SCH (21:04)
[2016-03-18] MEDS: Enoxaparin Sodium 40 MG/0.4 ML SYRINGE SC SCH (05:19)
[2016-03-18] MEDS: Meropenem 1 GM in Sodium Chloride 0.9% 100 ML IVPB SCH (05:23)
[2016-03-18] MEDS: Levothyroxine Sodium 88 MCG TAB PO SCH (05:24)
--- NOTE | 2016-03-18 07:53 | RAD ---
CHEST 1 VIEW: HISTORY: Dyspnea. Followup. COMPARISON: 03/17/16. FINDINGS: Cardiac silhouette is magnified by projection. Pulmonary vasculature remains upper limits of normal . Infiltrate at the right lung base has improved significantly since the prior exam, although patch y infiltrate has developed at the left lung base. Lungs are otherwise hyperinflated. Mediastinum is midline with aortic calcification. IMPRESSION: Improved aeration of the right lung base. Interval development of left basilar infiltrate. Close c ontinued radiographic followup is suggested. POS: [facility]
[2016-03-18] MEDS ORDERED: methylPREDNISolone 4 mg Tablet PO SCH ×2 (08:00→21:00)
[2016-03-18] MEDS: Budesonide 0.5 MG/2 ML NEB NEB SCH (08:25)
[2016-03-18] MEDS: Aspirin 81 mg Enteric Coated Tablet PO SCH ×2 (08:26→09:17)
[2016-03-18] MEDS: Multivitamin W/ Minerals 1 TAB PO SCH ×2 (08:26→09:17)
[2016-03-18] MEDS: Loratadine 10 MG TAB PO SCH ×2 (08:26→09:17)
[2016-03-18 08:28] VITALS: BP 101/62; TEMP 96.7
[2016-03-19] MEDS ORDERED: methylPREDNISolone 4 mg Tablet PO SCH (08:00)
[2016-03-20] MEDS ORDERED: methylPREDNISolone 4 mg Tablet PO SCH (08:00)
[2016-03-21] MEDS ORDERED: methylPREDNISolone 4 mg Tablet PO SCH (08:00)
[2016-03-21] MEDS ORDERED: Non-Formulary Item 1 EACH (Cholecalciferol (Vitamin D3) [Vitamin D3] 5,000 UNIT) PO SCH (09:00)
[2016-03-22] MEDS ORDERED: methylPREDNISolone 4 mg Tablet PO SCH (08:00)
== END 2016-03-18 10:16 | disposition swing bed (61) | DRG 178 ==
LOC: MADERS 14:43 → MADMS 20:03
PROVIDERS: ADMIT Family Medicine; ATTEND Family Medicine
DX: J69.0 Pneumonitis due to inhalation of food and vomit (principal); J44.1 Chronic obstructive pulmonary disease with (acute) exacerbation; G91.1 Obstructive hydrocephalus; E46 Unspecified protein-calorie malnutrition; J90 Pleural effusion, not elsewhere classified; R13.10 Dysphagia, unspecified; F03.90 Unspecified dementia, unspecified severity, without behavioral disturbance, psychotic disturbance, mood disturbance, and anxiety; J44.0 Chronic obstructive pulmonary disease with (acute) lower respiratory infection; N39.0 Urinary tract infection, site not specified; F73 Profound intellectual disabilities; E86.0 Dehydration; Z68.21 Body mass index [BMI] 21.0-21.9, adult; Q90.9 Down syndrome, unspecified; R26.81 Unsteadiness on feet; Z91.81 History of falling; E03.9 Hypothyroidism, unspecified; K21.9 Gastro-esophageal reflux disease without esophagitis; Z66 Do not resuscitate; F41.9 Anxiety disorder, unspecified; F32.9 Major depressive disorder, single episode, unspecified; F39 Unspecified mood [affective] disorder; Z88.2 Allergy status to sulfonamides; Z91.018 Allergy to other foods; G40.909 Epilepsy, unspecified, not intractable, without status epilepticus; M81.0 Age-related osteoporosis without current pathological fracture; G47.33 Obstructive sleep apnea (adult) (pediatric); J45.909 Unspecified asthma, uncomplicated
CPT/HCPCS: 36415; 51701; 51702; 71010; 80053; 80164; 80177; 81001; 85025; 87086; 94640; 96360; A4216; A4353; G8996-GN-CL; G8997-GN-CL; G8998-GN-CL; J1650; J2185; J2920; J2930; J7050; J7620; J7626

== ENCOUNTER 2016-03-17 19:01 | Inpatient (IN) | payer MEDICARE, MEDICAID ==
[2016-03-18 10:57] VITALS: BMI 23.1
[2016-03-18] MEDS ORDERED: Guaifenesin DM 100-10/5 ML UDCUP PO PRN (12:23)
[2016-03-18] MEDS ORDERED: Acetaminophen 325 MG TAB PO PRN (12:23)
[2016-03-18] MEDS ORDERED: Artificial Tear Sol 15 ML BOT EA EYE PRN (12:23)
[2016-03-18] MEDS ORDERED: FLU VACC QS2016-17 36MOS UP/PF 0.5 ML SYRINGE IM ONE (14:00)
[2016-03-18] MEDS ORDERED: Meropenem 1 GM in Sodium Chloride 0.9% 100 ML IVPB SCH (15:00)
[2016-03-18] MEDS ORDERED: Albuterol Sulfate 2.5 mg/3 ml Neb NEB SCH (15:00)
[2016-03-18] MEDS: Budesonide 0.5 MG/2 ML NEB NEB SCH ×2 (19:38→19:40)
[2016-03-18] MEDS: Meropenem 1 GM in Sodium Chloride 0.9% 100 ML IVPB SCH (19:39)
[2016-03-18] MEDS: Famotidine 20 MG TAB PO SCH (20:32)
[2016-03-18] MEDS: predniSONE 20 MG TAB PO SCH (21:41)
[2016-03-19] MEDS: Meropenem 1 GM in Sodium Chloride 0.9% 100 ML IVPB SCH ×3 (05:30→19:50)
[2016-03-19] MEDS: Levothyroxine Sodium 88 MCG TAB PO SCH (05:30)
[2016-03-19] MEDS: Budesonide 0.5 MG/2 ML NEB NEB SCH ×2 (05:32→18:06)
[2016-03-19] MEDS ORDERED: Enoxaparin Sodium 30 MG/0.3 ML SYRINGE SC SCH (06:30)
[2016-03-19 07:56] LABS: Anion Gap 15 mmol/L (10-20); BUN (Urea Nitrogen) 16 mg/dL (9.8-20.1); Calc. Creatinine Clearance 62 mL/min (70-130); Calcium 8.5 mg/dL (7.8-10.44); Carbon Dioxide 29 mmol/L (23-31); Chloride 105 mmol/L (98-107); Estimated GFR-MDRD 87; Glucose 128 mg/dL (80-115); Potassium 3.8 mmol/L (3.5-5.1); Sodium 145 mmol/L (136-145)
[2016-03-19 08:31] LABS: Hemoglobin 11.9 g/dL (12.0-16.0); Mean Corpuscular HGB CONC 33.4 g/dL (32.0-36.0); Mean Corpuscular Hemoglobin 33.5 pg (27.0-31.0); RBC Distribution Width 13.1 % (11.5-14.5); Red Blood Cell (RBC) Count 3.56 mill/uL (4.20-5.40); White Blood Cell (WBC) Count 8.5 thou/uL (4.8-10.8)
[2016-03-19 08:32] LABS: #Lymphocytes 0.8 thou/uL (1.20-3.40); #Monocytes 0.3 thou/uL (0.11-0.59); #Neutrophils 7.4 thou/uL (1.40-6.50); %Basophils 0.6 % (0.0-1.0); %Lymphocytes 9.7 % (21.0-51.0); %Monocytes 3.4 % (0.0-10.0); %Neutrophils 86.3 % (42.0-75.0); Mean Platelet Volume 7.6 fL (7.4-10.4); Platelet Count 197 thou/uL (130-400)
[2016-03-19] MEDS: Famotidine 20 MG TAB PO SCH ×2 (09:08→20:39)
[2016-03-19] MEDS: predniSONE 20 MG TAB PO SCH ×2 (09:08→20:38)
[2016-03-19] MEDS: Multivit, Therapeutic 1 TAB PO SCH (09:08)
[2016-03-19] MEDS: Aspirin 81 mg Enteric Coated Tablet PO SCH (09:08)
[2016-03-19] MEDS: Loratadine 10 MG TAB PO SCH (09:08)
--- NOTE | 2016-03-19 10:34 | RAD ---
PORTABLE UPRIGHT FRONTAL CHEST RADIOGRAPH: Date: 03/19/16 COMPARISON: 03/18/16. HISTORY: Respiratory distress, evaluate lung parenchyma. FINDINGS: There is increasing abnormal density within the right lung base, primarily on the basis of interstit ial prominence. There may be mild developing right basilar air space disease as well. Patchy opacity in the medial left base again noted. Diffuse interstitial prominence suggests underlying bullous ch albaro. No pneumothorax. IMPRESSION: Developing opacity in the right lung base suggests infectious pneumonitis or asymmetric edema. Follo w-up imaging following treatment suggested. POS: [facility]
[2016-03-20] MEDS: Meropenem 1 GM in Sodium Chloride 0.9% 100 ML IVPB SCH ×3 (06:11→19:30)
[2016-03-20] MEDS: Levothyroxine Sodium 88 MCG TAB PO SCH (06:12)
[2016-03-20] MEDS: Enoxaparin Sodium 30 MG/0.3 ML SYRINGE SC SCH (06:12)
[2016-03-20] MEDS: Budesonide 0.5 MG/2 ML NEB NEB SCH ×2 (06:22→18:05)
[2016-03-20] MEDS: Famotidine 20 MG TAB PO SCH ×2 (08:11→20:42)
[2016-03-20] MEDS: Multivit, Therapeutic 1 TAB PO SCH (08:11)
[2016-03-20] MEDS: predniSONE 20 MG TAB PO SCH ×2 (08:11→20:42)
[2016-03-20] MEDS: Aspirin 81 mg Enteric Coated Tablet PO SCH (08:11)
[2016-03-20] MEDS: Loratadine 10 MG TAB PO SCH (08:11)
[2016-03-21] MEDS: Meropenem 1 GM in Sodium Chloride 0.9% 100 ML IVPB SCH ×3 (05:00→20:31)
[2016-03-21] MEDS: Levothyroxine Sodium 88 MCG TAB PO SCH (05:00)
[2016-03-21] MEDS: Enoxaparin Sodium 30 MG/0.3 ML SYRINGE SC SCH (05:02)
[2016-03-21] MEDS: Budesonide 0.5 MG/2 ML NEB NEB SCH ×2 (05:03→18:13)
[2016-03-21] MEDS: Multivit, Therapeutic 1 TAB PO SCH (08:01)
[2016-03-21] MEDS: Aspirin 81 mg Enteric Coated Tablet PO SCH (08:01)
[2016-03-21] MEDS: Loratadine 10 MG TAB PO SCH (08:01)
[2016-03-21] MEDS: predniSONE 20 MG TAB PO SCH ×2 (08:01→20:32)
[2016-03-21] MEDS: Famotidine 20 MG TAB PO SCH ×2 (08:01→20:33)
[2016-03-21] MEDS: Nystatin 500,000 UNITS/5 ML UDCUP SSW SCH ×3 (13:07→20:33)
[2016-03-21 20:27] VITALS: TEMP 98.4
[2016-03-22] MEDS: Meropenem 1 GM in Sodium Chloride 0.9% 100 ML IVPB SCH ×2 (05:10→13:13)
[2016-03-22] MEDS: Enoxaparin Sodium 30 MG/0.3 ML SYRINGE SC SCH (05:12)
[2016-03-22] MEDS: Budesonide 0.5 MG/2 ML NEB NEB SCH (05:15)
[2016-03-22] MEDS: Levothyroxine Sodium 88 MCG TAB PO SCH (05:21)
[2016-03-22] MEDS: Loratadine 10 MG TAB PO SCH (08:48)
[2016-03-22] MEDS: Nystatin 500,000 UNITS/5 ML UDCUP SSW SCH ×2 (08:48→13:14)
[2016-03-22] MEDS: Famotidine 20 MG TAB PO SCH (08:49)
[2016-03-22] MEDS: Multivit, Therapeutic 1 TAB PO SCH (08:49)
[2016-03-22] MEDS: Aspirin 81 mg Enteric Coated Tablet PO SCH (08:49)
[2016-03-22] MEDS: predniSONE 20 MG TAB PO SCH (08:49)
[2016-03-22 15:37] VITALS: BP 122/74
--- NOTE | 2016-03-23 01:24 | DIS ---
DATE OF ADMISSION: 03/14/2016 DISCHARGED TO [facility]: 03/18/2016 DISCHARGED TO [facility]: 03/22/2016 REASON FOR ADMISSION: Dehydration and altered mental status. FINAL DIAGNOSES: 1. Recurrent aspiration bronchitis/pneumonia. 2. Chronic dysphagia complicated with recurrent aspiration pneumonia, not a candidate for PEG tube feeding. 3. Dehydration/Malnutrition secondary to poor oral intake from alteration of mental status. 4. 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 5. New onset seizure disorder, improved.Probable intolerance to Keppra. 6. Chronic asthma with acute exacerbation. 7. Down's syndrome with profound mental retardation. 8. Depression/anxiety/mood swings 9. Chronic reflux symptoms. 10. Dyslipidemia. Allergic rhinitis. 11. Hypothyroidism. 12. History of failed swallow study. 13. History of sleep apnea, noncompliant with CPAP. 14. History of presenile dementia. 15. Unsteady abnormality of gait and balance DISPOSITION: Transferred back to [facility]. CONDITION ON DISCHARGE: Guarded. HOME MEDICATIONS: Augmentin 875 mg p.o. b.i.d. for 10 days to start at [facility]., DuoNeb q.4 hours p.r.n., aspirin 81 mg before meals 1 tab p.o. daily, budesonide 0.5 mg p.o. b.i.d., levothyroxine 88 mcg p.o. daily , loratadine 10 mg p.o. daily, multivitamin 1 tablet p.o. daily, artificial tears as needed p.r.n., ranitidine 150 mg p.o. daily, simvastatin 10 mg p.o. at bedtime, Tylenol 325 1-2 tablets q.6 p.r.n., vitamin D3 5000 units p.o. q. month. Prednisone 30 mg p.o. b.i.d. for 3 days, then 20 mg p.o. b.i.d. for 3 days, then 10 mg p.o. b.i.d. for 3 days, then 10 mg p.o. daily for 3 days, then 5 mg p.o. daily for 3 days. MEDICATIONS DISCONTINUED: Memantine 10 mg p.o. b.i.d., Donepezil 10 mg p.o. at bedtime, Depakote 125 mg p.o. b.i.d., Keppra 500 mg p.o. b.i.d. DISCHARGE INSTRUCTIONS: 1. Diet: Puree and nectar thickened liquids. 2. Activities: Complete bed bound. Fall precautions. 3. Aspiration precautions at all times. 4. Transfer to [place] for palliative care/hospice care. CODE STATUS: DO NOT RESUSCITATE/DO NOT INTUBATE. HISTORY OF PRESENT ILLNESS AND HOSPITAL COURSE: Ms. Huertas is a 65-year-old female with significant history of Down syndrome with profound mental retardation; complicated with chronic dysphagia associated with recurrent aspiration pneumonia/bronchitis, presenile dementia, depression/anxiety, mood swings, hypothyroidism, and dyslipidemia. The patient is a long-term resident of [facility]. The patient has had a recurrent history of aspiration pneumonia/bronchitis. She had a failed swallow study in the recent past and family declined alternative enteral feeding/PEG tube placement. The patient has been in the hospital more frequent lately. In the past month, she was admitted twice for aspiration pneumonia. In her last admission in February , she was treated with both IV Rocephin, clindamycin and was discharged with moxifloxacin. Recurrent pneumonia is frequently associated with intermittent reactive airway disease. Last February, she was also sent home with oral steroids after weaning off from IV steroids from the hospital. Postt antibiotic therapy of the latest episode of aspiration pneumonia, patient has had new onset of seizure-like activities. On further CT scan imaging, she was found to have a non-communicating hydrocephalus on 03/11/[address] [facility] ER. She has had a neurosurgeon evaluation thereafter and was deemed to be stable with medical therapy. She is recommended to start on Keppra 500 mg p.o. b.i.d. AFter the recent ER visit, the patient was noted to be very lethargic for the first 48 hours after initiation of the anticonvulsant. Patient would only open her eye and takes her medications, but not fully awake enough to eat. Over a period of 48 hours without oral intake, patient becomes generally weak and dehydrated, thus sent back to [place] ER for further evaluation. At that time, patient was more awake and alert. She was admitted initially for dehydration and further observation of altered mental status. Her medications were adjusted.\ during this hospitalization. Keppra, Depakote, Namenda, donepezil were discontinued. She has been seizure free over the hospital course. During this hospitalization, patient developed recurrent aspiration within 24 hours upon admission,even before reinitiation of oral intake. She was started on empiric IV antibiotic treatment with meropenem at this time. The patient was also noted to have recurrent respiratory distress associated with wheezing and auditory coarse breath sounds. Her O2 sats stayed between 89-93 at 2.5-4 liters of continuous oxygen per nasal cannula. She was again started on IV steroids and was later on switched to oral steroid. Her serial chest x-ray during this hospitalization is consistent with aspiration pneumonia that has progressively worsened from right to the left lobe. This was also associated with pulmonary edema/pulmonary effusion that was deemed secondary to gentle volume hydration. Overall, mental status of patient goes back and forth from lethargy to become more awake and alert, episodically. For most of the time, patient would wake up and eat, but overall oral intake remains inadequate. It was noted that the more patient eats, the frequent episodes of acute respiratory distress was noted. Patient is DNR and family does not decline PEG tube feeding. I have several visitations with the family, to both both Liana Banuelos, the sister and Mary Winston, the niece/POA by telephone conversations. Family is well aware of patient's hospital course. Family is well aware of the guarded prognosis of the patient and overall poor prognosis due to high risk of aspiration pneumonia. Patient's family declined aggressive interventions secondary to poor quality of life. They confirmed the DO NOT RESUSCITATE AND DO NOT INTUBATE status of the patient. Family has had a conference with [facility] to consult for palliative care. After a trial of empiric IV antibiotic therapy, course was completed, the patient was transferred back to [facility] on 03/22/16. [facility] with oral antibiotic and oral steroid. She will [facility]. VITAL SIGNS PRIOR TO DISCHARGE: Blood pressure 122/74, temperature 98.4, pulse 73, respirations 20, O2 sats 94% at 3.5 liters per nasal cannula. Time spent on this discharge 35 minutes for examining patient and coordinating care. EDEN
== END 2016-03-22 16:50 | DRG 640 ==
LOC: MADMS 03-18 10:25
PROVIDERS: ADMIT Family Medicine; ATTEND Family Medicine
DX: E86.0 Dehydration (principal); J69.0 Pneumonitis due to inhalation of food and vomit; G91.1 Obstructive hydrocephalus; E46 Unspecified protein-calorie malnutrition; R13.10 Dysphagia, unspecified; F73 Profound intellectual disabilities; Z66 Do not resuscitate; R41.82 Altered mental status, unspecified; G40.909 Epilepsy, unspecified, not intractable, without status epilepticus; Q90.9 Down syndrome, unspecified; K21.9 Gastro-esophageal reflux disease without esophagitis; E78.5 Hyperlipidemia, unspecified; J30.9 Allergic rhinitis, unspecified; E03.9 Hypothyroidism, unspecified; R26.81 Unsteadiness on feet; G47.30 Sleep apnea, unspecified; Z91.19 Patient's noncompliance with other medical treatment and regimen; F39 Unspecified mood [affective] disorder; F41.8 Other specified anxiety disorders; Z68.23 Body mass index [BMI] 23.0-23.9, adult
CPT/HCPCS: 36415; 71010; 80048; 85025; A4216; J1650; J2185; J7050; J7506; J7620; J7626